=== PATIENT | female | born 1985 | race Caucasian/White ===

== ENCOUNTER 2016-09-21 14:39 | Inpatient (IN) | payer OTHER ==
[~2016-09-21] VITALS: Ht 167.6 cm; Wt 76.1 kg
--- NOTE | 2016-09-21 15:27 | DIAGNOSTIC IMAGING REPORT ---
PROCEDURE: XR ABD SERIES 2V ABD/1V CHEST INDICATION: ABDOMINAL PAIN TECHNIQUE: AP supine and upright views of the abdomen with single view of the chest. COMPARISON: Abdominal series 10/26/2010. FINDINGS: CHEST: Lungs are clear. Normal cardiovascular structures. Bony thorax is unremarkable. ABDOMEN: Left upper quadrant surgical changes. Bowel gas pattern is normal. No soft-tissue masses or unusual calcifications. No evidence of free air. IUD in place. Osseous structures are unremarkable. IMPRESSION: 1. Negative acute abdominal series. 2. Left upper quadrant surgical changes.
--- NOTE | 2016-09-21 17:07 | DIAGNOSTIC IMAGING REPORT ---
PROCEDURE: ABDOMEN/PELVIS WITH CONTRAST CLINICAL INDICATION: ABDOMINAL PAIN TECHNIQUE: 125 ml of Isovue 300 were injected intravenously and axial images were obtained of the abdomen and pelvis with sagittal and coronal reformations. COMPARISON: Plain films performed the same day and CT abdomen pelvis 10/12/2010 FINDINGS: ABDOMEN: Mild enlargement of the proximal pancreas. Moderate peripancreatic inflammation around the entire gland and small amount of fluid layering dependently along the left pararenal space, and towards the right and the paraduodenal region. Fluid extends caudally along the right medial pericolic gutter. The gland enhances diffusely. No intraparenchymal air foci. No significant ductal dilatation although multiple small ductal branches are visible. The splenic vein is visible without thrombosis. Since the prior CT scan, there has been a cholecystectomy and there is now mild intrahepatic and moderate extrahepatic biliary dilatation. No choledocholithiasis. Mild diffuse hepatic hypodensity. There are surgical changes of gastric bypass in the left upper quadrant. The excluded stomach demonstrates diffuse mild mural edema in the body and antrum, reactive. Decompressed small bowel loops. Mild colonic ileus. Clear lung bases. Normal sized heart. No hiatal hernia. The adrenal glands, kidneys, and spleen are normal. There are a few mildly prominent lymph nodes in the retroperitoneum, none pathologically enlarged. Retroperitoneal vessels and ureters are of normal caliber. PELVIS: Intrauterine device in position. Normal ovarian tissue. Scattered air-fluid levels in nondilated small bowel suggestive of reactive ileus. No free pelvic fluid or abscess. Normal urinary bladder, appendix, and pelvic vessels. IMPRESSION: 1. Findings of acute pancreatitis. Mild reactive gastritis and ileus, no other complication. 2. Moderate biliary dilatation, probably in part due to spasm in the pancreatic head and secondary to cholecystectomy. 3. Mild diffuse hepatic parenchymal hypodensity, likely mild hepatic edema, less likely hepatic steatosis. This raises possibility of alcohol induced hepatitis and pancreatitis. 4. Surgical changes of gastric bypass. 5. IUD in place in the uterus. 6. Findings called to the emergency room. All CT scans at this facility use dose modulation, iterative reconstruction, and/or weight-based dosing when appropriate to reduce radiation dose to as low as reasonably achievable.
--- NOTE | 2016-09-21 17:08 | ED ORDER SUMMARY ---
..... Patient: TOSIN MORALES OrderSheet [facility] VisitID: [id number] [address] [place] [address] 30y, F Registration Date/Time: 09/21/2016 ORDER SHEET Weight: 61.2 kg (stated) Allergies: None GENERAL ORDERS: Crystal Slicer (Continuous) (14:54 09/21/2016 EKoroleva P.A.-C) (15:05 KKnebel R.N.) Abd Series 2V Abd/1V Chest Urgent (14:55 09/21/2016 EKoroleva P.A.-C) (Ack 14:58 LTapper) (15:08 KKnebel R.N.) CBC w Diff Urgent (14:55 09/21/2016 EKoroleva P.A.-C) (Ack 14:58 LTapper) (15:01 KKnebel R.N.) CMP Urgent (14:55 09/21/2016 EKoroleva P.A.-C) (Ack 14:58 LTapper) (15:01 KKnebel R.N.) Amylase Urgent (14:55 09/21/2016 EKoroleva P.A.-C) (Ack 14:58 LTapper) (15:01 KKnebel R.N.) Lipase Urgent (14:55 09/21/2016 EKoroleva P.A.-C) (Ack 14:58 LTapper) (15:01 KKnebel R.N.) UA-Culture if indicated Urgent (14:55 09/21/2016 EKoroleva P.A.-C) (Ack 14:58 LTapper) (15:08 KKnebel R.N.) Urine Urgent (14:55 09/21/2016 EKoroleva P.A.-C) (Ack 14:58 LTapper) (15:08 KKnebel R.N.) Troponin-I Urgent (14:55 09/21/2016 EKoroleva P.A.-C) (Ack 14:58 LTapper) (15:02 KKnebel R.N.) EKG - ER Stat (14:55 09/21/2016 EKoroleva P.A.-C) (Ack 14:58 LTapper) (15:05 KKnebel R.N.) NPO (14:55 09/21/2016 EKoroleva P.A.-C) (15:02 KKnebel R.N.) CT Abd/Pel w Cont (No) (see lab) Urgent (16:09 09/21/2016 EKoroleva P.A.-C) (Ack 16:11 RKaruga) (16:52 KKnebel R.N.) Ethyl Alcohol Urgent (16:09 09/21/2016 EKoroleva P.A.-C) (Ack 16:11 RKaruga) (16:31 KKnebel R.N.) Urine Drug Screen Urgent (16:10 09/21/2016 EKoroleva P.A.-C) (Ack 16:12 RKaruga) (16:31 KKnebel R.N.) MEDICATION ORDERS: IV FLUIDS: IV NS : initial bolus 1000 mL (1000 mL/hr), then 1000 mL/hr for X1 (NOW); Shawn (14:54 09/21/2016 EKoroleva P.A.-C) (15:01 KKnebel R.N.) Zofran IV 4 mg (NOW) (14:55 09/21/2016 EKoroleva P.A.-C) (15:01 KKnebel R.N.) Dilaudid IV 1 mg (HIGH ALERT MEDICATION, NOW) (15:04 09/21/2016 EKoroleva P.A.-C) (15:27 KKnebel R.N.) Dilaudid IV 1 mg (may repeat 1 mg in 20 mins, total order of this is for 2 mg total) (16:10 09/21/2016 EKoroleva P.A.-C) (16:16 KKnebel R.N.) ORDER SHEET NOTES: [Electronically signed by Charlee FergusonASherri-C (17:58 09/21/2016)] [Electronically signed by Yvonne Velez R.N. (21:36 09/21/2016)] [Electronically locked/signed by Yvonne Velez R.N. (21:36 09/21/2016)Frederic
--- NOTE | 2016-09-21 17:08 | ED NURSING NOTES ---
Clinical Report - Nurses [facility] [address] [place] [address] 09/21/2016 14:41 Patient: TOSIN MORALES TRIAGE Triage time 14:49 Sep 21 2016. Acuity: LEVEL 3. Chief Complaint: ABDOMINAL PAIN and VOMITING. Alert. --14:55 Yvonne Velez R.N. 14:48 09/21/16. BP: 149/103. HR: 79. RR: 20. O2 saturation: 100%. Temp: 98.1 F. Pain level now: 04/17. --14:55 Yvonne Velez R.N. Weight: 61.2 kg stated. Height/Length: 67 inches Per Patient. BMI: 21.2. --14:55 Yvonne Velez R.N. Medications None. --14:49 Yvonne Velez R.N. Allergies None. --14:49 Yvonne Velez R.N. History Arrived by private vehicle, and accompanied by friend and (boyfriend). This started today. She has had vomiting and abdominal pain. Last oral intake by patient was liquid today. SOCIAL HX: Current every day light tobacco smoker (cigarette)- less than 1/2 a pack per day. Regular alcohol use; consumes two liquor drinks. Last drink was less than 24 hours ago. No recent travel. No infectious disease exposure. No known contact with a sick individual. SELF HARM ASSESSMENT: A self harm assessment was performed. The patient answered "no" to the question "Do you have thoughts of harming or killing yourself?". FALL RISK ASSESSMENT: Fall risk assessment completed. No fall risk identified. NUTRITIONAL RISK ASSESSMENT: The nutritional risk assessment revealed no deficiencies. FUNCTIONAL ASSESSMENT: Functional assessment: no impairments noted. LEARNING NEEDS ASSESSMENT: The learning needs assessment revealed no barriers. ABUSE ASSESSMENT: Abuse assessment: The patient was asked "Do you feel safe in your home?". SKIN INTEGRITY ASSESSMENT: Skin integrity risk assessment completed. No skin integrity risk identified. --14:55 Yvonne Velez R.N. PROBLEMS: Abscess. Staph Infections. Neck Pain. Immunizations. LNMP - Last Normal Menstrual Period. --14:49 Yvonne Velez R.N. Pancreatitis. --14:53 Yvonne Velez R.N. ADDITIONAL SURGERIES: Gallbladder Surgery. Gastric bypass. --14:50 Yvonne Velez R.N. Interventions ID band on patient. To room. --14:55 Yvonne Velez R.N. PHYSICAL ASSESSMENT GENERAL / NEURO / PSYCH: Alert. Oriented X 4. Appears in pain. RESPIRATORY: Respirations not labored. CVS: Capillary refill less than 2 seconds. GI / : Abdomen soft. Abdominal tenderness. SKIN: Skin is warm and dry. Skin rash (neck and upper back area). --14:56 Yvonne Velez R.N. NURSING PROGRESS NOTES Pulse oximeter and NIBP monitor placed on patient; monitor alarms on. Patient gowned. Head of bed elevated. Two patient identifiers checked. Call light placed in reach. Side rails up x 1. Bed placed in lowest position. Brakes of bed on. --14:57 Yvonne Velez R.N. 14:55 09/21/2016 Site #1 started via IV in the left antecubital space with an 20g angiocath; one attempt. Blood drawn: rainbow set. Labeled in the presence of the patient and sent to the lab. Saline lock flushed with 10 mL saline. --15:00 Yvonne Velez R.N. 14:59 09/21/2016 Started bag #1 1000 mL IV Fluids IV NS (Saline); bolus of 1000 mL over 1 hour(s) via site #1. Allergies verified and confirmed 5 rights. IV patency established. IV site checked: no pain, redness, or swelling. IV flushed thoroughly pre- and post-medication administration. --15:01 Yvonne Velez R.N. 15:01 09/21/2016 Zofran (Ondansetron HCl) IVP 4 mg given over 2 minute(s) via site #1. Allergies verified and confirmed 5 rights. IV patency established. IV site checked: no pain, redness, or swelling. IV flushed thoroughly pre- and post-medication administration. --15:01 Yvonne Velez R.N. monitor and storage bin tender placed on patient; monitor and storage bin tender- Lead II; monitor alarms on. --15:05 Yvonne Velez R.N. Patient transported to radiology by stretcher with tech. (15:09 Sep 21 2016). --15:09 Yvonne Velez R.N. EKG time: (15:04). EKG was performed by a tech and shown to the ED physician. --15:23 Sharita Coyle 15:25 09/21/16. Patient ID band checked for patient name: patient confirmed. Instructions provided to collect clean catch urine and patient verbalized understanding. Clean catch urine collected with return of yellow-colored clear urine; sample sent to lab for urinalysis and HCG. Specimen labeled in the presence of the patient. --15:30 Yvonne Velez R.N. 15:27 09/21/2016 Dilaudid (HYDROmorphone HCl PF) IVP 1 mg given over 2 hour(s) via site #1. Allergies verified, confirmed 5 rights and sedative warning given to the patient. IV patency established. IV site checked: no pain, redness, or swelling. IV flushed thoroughly pre- and post-medication administration. --15:27 Yvonne Velez R.N. 15:31 09/21/16. BP: 145/92. HR: 68. RR: 21. O2 saturation: 100%. Pain level now: 8/10. --15:31 Yvonne Velez R.N. 15:51 09/21/2016 Dilaudid IVP Response: pain is improving. Symptoms are the same. The patient feels the same. --16:16 Yvonne Velez R.N. 16:16 09/21/2016 Dilaudid (HYDROmorphone HCl PF) IVP 1 mg given over 2 minute(s) via site #1. Allergies verified, confirmed 5 rights and sedative warning given to the patient. IV patency established. IV site checked: no pain, redness, or swelling. IV flushed thoroughly pre- and post-medication administration. --16:16 Yvonne Velez R.N. 16:16 09/21/2016 IV Fluids IV NS Discontinued: bag #1 completed. Total amount infused: 1000 mL. --16:16 Yvonne Velez R.N. 16:17 09/21/16. BP: 137/87. HR: 81. RR: 17. O2 saturation: 98%. Pain level now: 03/18. --16:17 Yvonne Velez R.N. Patient transported to [place] with tech. (16:41 Sep 21 2016 16:41 Sep 21 2016). --16:41 Yvonne Velez R.N. 16:51 09/21/16. BP: 144/100. HR: 85. RR: 12. O2 saturation: 100%. Pain level now: 02/15. --16:51 Yvonne Velez R.N. 16:52 09/21/2016 Dilaudid (HYDROmorphone HCl PF) IVP 1 mg given over 2 minute(s) via site #1. Allergies verified, confirmed 5 rights and sedative warning given to the patient. IV patency established. IV site checked: no pain, redness, or swelling. IV flushed thoroughly pre- and post-medication administration. --16:52 Yvonne Velez R.N. Cardiac rhythm. Care transferred and report given (Cindy). --19:26 Yvonne Velez R.N. DISPOSITION / DISCHARGE Report was given to a nurse via a phone call. Report included patient's care, treatment, medications, reviewed medication reconcilliation, and condition (including any recent changes or anticipated changes). All questions were answered. Report was acknowledged and care was transferred. Bed obtained and ready (301). Patient's personal items include: shirt, pants, undergarments, socks, shoes, contacts, jewelry, wallet and cell phone, watch sliver colored, 4 earrings each side three silver colored and 1 black colored, 1 credit card; items were placed in belongings bag and given to the patient. --19:30 Yvonne Velez R.N. 19:32 09/21/16. BP: 147/102. HR: 84. RR: 21. O2 saturation: 100%. Pain level now: 04/17. --19:32 Yvonne Velez R.N. Locked/Released at 09/21/2016 21:36 by Yvonne Velez R.N.
--- NOTE | 2016-09-21 17:08 | ED CLINICAL REPORT ---
Clinical Report - Physicians/Mid Levels [facility] [address] [place] [address] 09/21/2016 14:41 [id number] Time Seen: 14:56 Mar 16 2016. Arrived- By private vehicle. Historian- patient and significant other. HISTORY OF PRESENT ILLNESS Chief Complaint: ABDOMINAL PAIN. This started today and is still present. It is described as "pain" and it is described as located in the epigastric area and in the upper abdomen. The patient has had nausea, loss of appetite and vomiting. No diarrhea. (patient reports since today she has had epigastric pain, non-radiating with associated nausea. Unable to tolerate any po fluid/ food. Patient denies sick contacts. No meds. No recent travel. No melana/ no diarrhea). REVIEW OF SYSTEMS No constipation, black stools, difficulty with urination, pain with urination or urinary frequency. No fever, headache, chest pain or chills. All systems otherwise negative, except as recorded above. PAST HISTORY Problems: Pancreatitis. Abscess. Staph Infections. Neck Pain. Immunizations. LNMP - Last Normal Menstrual Period. Additional Surgeries: . Gallbladder Surgery. Gastric bypass. Medications: None. Allergies: None. SOCIAL HISTORY Smoker- current status unknown. Alcohol use. No drug use. ADDITIONAL NOTES The nursing notes have been reviewed. PHYSICAL EXAM Vital Signs: 09/21/2016 14:48 BP: 149/103. HR: 79. RR: 20. O2 saturation: 100%. Temp: 98.1 F. Pain level now: 10. Appearance: Alert. Eyes: Eyes normal inspection. ENT: Ears normal. Neck: Normal inspection. CVS: Normal heart rate and rhythm. Heart sounds normal. Respiratory: No respiratory distress. Breath sounds normal. Back: Normal inspection. No CVA tenderness. Neuro: Oriented X 3. LABS, X-RAYS, AND EKG EKG: EKG time: (1504). No acute process. No acute ischemia. Normal EKG. Rate: 62. Normal P waves. Normal NOA. Normal QRS complex. Normal axis. Normal ST and T waves and QT. Prior EKG unavailable. The study has been interpreted contemporaneously. The EKG appears to be a good tracing. Chest X-ray: (IMPRESSION: 1. Negative acute abdominal series. 2. Left upper quadrant surgical changes. Electronically Final signed by:Randall Kelly MD 09/21/2016 3:27:27 PM). Abdominal CT: IMPRESSION: 1. Findings of acute pancreatitis. Mild reactive gastritis and ileus, no other complication. 2. Moderate biliary dilatation, probably in part due to spasm in the pancreatic head and secondary to cholecystectomy. 3. Mild diffuse hepatic parenchymal hypodensity, likely mild hepatic edema, less likely hepatic steatosis. This raises possibility of alcohol induced hepatitis and pancreatitis. 4. Surgical changes of gastric bypass. 5. IUD in place in the uterus. 6. Findings called to the emergency room. All CT scans at this facility use dose modulation, iterative reconstruction, and/or weight-based dosing when appropriate to reduce radiation dose to as low as reasonably achievable. Electronically Final signed by:Marilynn Perez MD 09/21/2016 5:03:00 PM. Laboratory Tests: UA-Culture if indicated: (LAURIE: 09/21/2016 15:25) ( MsgRcvd 09/21/2016 16:12) Final results Test Result Flag Units (Reference) URINE COLOR YELLOW URINE APPEARANCE CLEAR URINE GLUCOSE NEGATIVE (NEGATIVE) URINE BILIRUBIN NEGATIVE (NEGATIVE) URINE KETONE 1+ (NEGATIVE) URINE SPECIFIC GRAVITY 1.020 (1.010-1.030) URINE PH 7.5 (5.0-8.0) URINE PROTEIN 1+ (NEGATIVE) URINE UROBILINOGEN 1.0 EU/dL (0.2-1.0) URINE NITRITE NEGATIVE (NEGATIVE) URINE BLOOD TRACE-INTACT (NEGATIVE) URINE LEUK ESTERASE NEGATIVE (NEGATIVE) URINE RBC 1-3 rbc/hpf (0-1) URINE WBC 1-3 wbc/hpf (0-1) URINE EPITHELIAL CELLS 3-5 EPI/hpf (0-5) URINE BACTERIA MODERATE (2+ TO 3+) (NONE SEEN) URINE COMMENT CULTURE INDICATED URINE CULTURES ARE SET-UP BASED ON THE FOLLOWING CRITERIA:POSITIVE NITRITEPOSITIVE LEUKOCYTE ESTERASEGREATER THAN 10 WHITE BLOOD CELLSMODERATE (2+) OR GREATER BACTERIA Urine: (LAURIE: 09/21/2016 15:25) ( [facility] 09/21/2016 15:51) Final results Test Result Flag Units (Reference) URINE NEGATIVE CBC w Diff: (LAURIE: 09/21/2016 14:50) ( [facility] 09/21/2016 15:07) Final results Test Result Flag Units (Reference) WHITE BLOOD COUNT 12.9 H K/uL (4.5-11.5) RED BLOOD COUNT 4.15 M/uL (4.00-5.20) HEMOGLOBIN 12.5 gm/dL (12.0-16.0) HEMATOCRIT 38.0 % (36.0-46.0) MEAN CELL VOLUME 92 fL (80-100) MEAN CORPUSCULAR HGB 30 pg (26-34) MEAN CORPUSCULAR HGB CONC 33 g/dL (31-37) RED CELL DISTRIBUTION WIDTH 20.4 H % (11.6-14.8) PLATELET COUNT 374 K/uL (150-400) NEUTROPHIL % 84.5 H % (50-75) LYMPH % 11.6 L % (25-40) MONO % 3.5 % (3-14) EOSINOPHIL % 0.4 % (0-4) BASOPHIL % 0 % (0-2) Urine Drug Screen: (LAURIE: 09/21/2016 15:25) ( [facility] 09/21/2016 16:43) Final results Test Result Flag Units (Reference) AMPHETAMINE/METHAMPHETAMINE NEGATIVE (NEGATIVE) BARBITURATE NEGATIVE (NEGATIVE) BENZODIAZEPINE NEGATIVE (NEGATIVE) CANNABINOID NEGATIVE (NEGATIVE) COCAINE NEGATIVE (NEGATIVE) ECSTASY NEGATIVE (NEGATIVE) METHADONE NEGATIVE (NEGATIVE) OPIATE NEGATIVE (NEGATIVE) The urine drug screen is a qualitative screening test fordrug overdose and abuse. All screen results should beconsidered as presumptive.Drugs screened for are as follows:BenzodiazepinesCocaineAmphetamines/MetamphetaminesTHC (Tetrahydrocannabinol)OpiatesBarbituratesEcstasyMethadonePositive results are unconfirmed. For confirmation, notifythe lab for the specimen to be sent to the reference lab.All confirmations must be performed by a differentmethodology.The ingestion of natural herbal and plant productscontaining Ephedra/Ephedra metabolites can produce in urineone or more substances capable of cross reacting withamphetamine/methamphetamine immunoassays. These testsprovide a preliminary result only. A more specificalternative chemical method must be used to obtain aconfirmed analytical result. Ethyl Alcohol: (LAURIE: 09/21/2016 14:51) ( MsgRcvd 09/21/2016 16:32) Final results Test Result Flag Units (Reference) ETHYL ALCOHOL 4 mg/dL (3-10) CMP: (LAURIE: 09/21/2016 14:50) ( MsgRcvd 09/21/2016 16:05) Final results Test Result Flag Units (Reference) GLUCOSE 97 mg/dL (70-110) BUN 6 L mg/dL (7-18) CREATININE 0.6 mg/dL (0.6-1.3) Estimated GFR >60 mL/min Estimated GFR- >60 mL/min Note: Persistent reduction over 3 months in eGFR<60 mL/min/1.73 m2 defines CKD. Patients with eGFR values>=60 mL/min/1.73 m2 may also have CKD if evidence ofpersistent proteinuria. Additional information may be foundat www.kidney.org. SODIUM 140 mmol/L (136-145) POTASSIUM 4.2 mmol/L (3.5-5.1) CHLORIDE 101 mmol/L (98-107) CARBON DIOXIDE 28 mmol/L (21-32) CALCIUM 8.5 mg/dL (8.5-10.1) TOTAL PROTEIN 7.2 g/dL (6.4-8.2) ALBUMIN 3.7 g/dL (3.3-5.0) BILIRUBIN, TOTAL 0.4 mg/dL (0.0-1.0) ALKALINE PHOSPHATASE 119 H U/L (46-116) AST (SGOT) 81 H U/L (15-37) ALT (SGPT) 47 U/L (12-78) AMYLASE 382 H U/L (25-115) TROPONIN I <0.05 ng/mL (0.00-1.5) TROPONIN REFERENCE RANGE:<0.1 NEGATIVE0.1-1.5 INDETERMINANT>1.5 POSITIVE LIPASE 3010 H U/L (73-393) . PROGRESS AND PROCEDURES Course of Care: Pt remains in pain, will repeat dilauidid 1 mg, she has now recieved 3 mg in total, in addition recievein 2nd L of IV NS. Lipase significantly elevated, pt does endorse 2 ETOH drinks per day, and h/o pancreatitis, with admissin, prior to her cholecysectomy. Pt with no new meds/ abx. Pt stable. Discussed case with DR. Ness 1700 Radiology, reports acute pancreatitis Discussed case with DR. Sewell 1708 who will see patient in er. Symptoms better. Patient/family counseled. Disposition: Admitted to Acute Care. CLINICAL IMPRESSION Pancreatitis likely secondary to chronic ETOH dependence and use. (Electronically signed by Charlee Ferguson P.A.-C 09/21/2016 17:58)
--- NOTE | 2016-09-21 17:08 | ED ORDER SUMMARY ---
..... Patient: TOSIN MORALES OrderSheet [facility] VisitID: [id number] [address] [place] [address] 30y, F Registration Date/Time: 09/21/2016 ORDER SHEET Weight: 61.2 kg (stated) Allergies: None GENERAL ORDERS: Industrial Service Technician (Continuous) (14:54 09/21/2016 EKoroleva P.A.-C) (15:05 KKnebel R.N.) Abd Series 2V Abd/1V Chest Urgent (14:55 09/21/2016 EKoroleva P.A.-C) (Ack 14:58 LTapper) (15:08 KKnebel R.N.) CBC w Diff Urgent (14:55 09/21/2016 EKoroleva P.A.-C) (Ack 14:58 LTapper) (15:01 KKnebel R.N.) CMP Urgent (14:55 09/21/2016 EKoroleva P.A.-C) (Ack 14:58 LTapper) (15:01 KKnebel R.N.) Amylase Urgent (14:55 09/21/2016 EKoroleva P.A.-C) (Ack 14:58 LTapper) (15:01 KKnebel R.N.) Lipase Urgent (14:55 09/21/2016 EKoroleva P.A.-C) (Ack 14:58 LTapper) (15:01 KKnebel R.N.) UA-Culture if indicated Urgent (14:55 09/21/2016 EKoroleva P.A.-C) (Ack 14:58 LTapper) (15:08 KKnebel R.N.) Urine Urgent (14:55 09/21/2016 EKoroleva P.A.-C) (Ack 14:58 LTapper) (15:08 KKnebel R.N.) Troponin-I Urgent (14:55 09/21/2016 EKoroleva P.A.-C) (Ack 14:58 LTapper) (15:02 KKnebel R.N.) EKG - ER Stat (14:55 09/21/2016 EKoroleva P.A.-C) (Ack 14:58 LTapper) (15:05 KKnebel R.N.) NPO (14:55 09/21/2016 EKoroleva P.A.-C) (15:02 KKnebel R.N.) CT Abd/Pel w Cont (No) (see lab) Urgent (16:09 09/21/2016 EKoroleva P.A.-C) (Ack 16:11 RKaruga) (16:52 KKnebel R.N.) Ethyl Alcohol Urgent (16:09 09/21/2016 EKoroleva P.A.-C) (Ack 16:11 RKaruga) (16:31 KKnebel R.N.) Urine Drug Screen Urgent (16:10 09/21/2016 EKoroleva P.A.-C) (Ack 16:12 RKaruga) (16:31 KKnebel R.N.) MEDICATION ORDERS: IV FLUIDS: IV NS : initial bolus 1000 mL (1000 mL/hr), then 1000 mL/hr for X1 (NOW); Shawn (14:54 09/21/2016 EKoroleva P.A.-C) (15:01 KKnebel R.N.) Zofran IV 4 mg (NOW) (14:55 09/21/2016 EKoroleva P.A.-C) (15:01 KKnebel R.N.) Dilaudid IV 1 mg (HIGH ALERT MEDICATION, NOW) (15:04 09/21/2016 EKoroleva P.A.-C) (15:27 KKnebel R.N.) Dilaudid IV 1 mg (may repeat 1 mg in 20 mins, total order of this is for 2 mg total) (16:10 09/21/2016 EKoroleva P.A.-C) (16:16 KKnebel R.N.) ORDER SHEET NOTES: [Electronically signed by Charlee FergusonASherri-C (17:58 09/21/2016)] [Electronically signed by Yvonne Velez R.N. (21:36 09/21/2016)] [Electronically locked/signed by Yvonne Velez R.N. (21:36 09/21/2016)Frederic
--- NOTE | 2016-09-21 18:14 | History & Physical Report ---
History Chief Complaint abdominal pain History of Present Illness Patient is a 30 year old female with a pmh of gallstone pancreatitis, and gastric bypass via kelsey en y. Patient has been having abdominal pain for one day. Patient claims that it was a sudden onset of abdominal pain that was epigastric in location and felt like gnawing pain that was going from her epigastrium to her back. Patient had 4 episodes of vomiting with no releif from the pain. Patient continued to have the abdominal pain and decided that the best option would be to come to the hospital. Patient is otherwise stable. Patient History 1. Pancreatitis 2. Gastric bypass status for obesity Social History Patient lives at home with her fiance. She has one child and is currently not employed. Patient does smoke cigarettes but does not use alcohol or illicit drugs. Patient smokes around half a pack a day for the past 18 years. Medications and Allergies Medications Current Medications Sig/Mj Start time Last Medication Dose Route Stop Time Status Admin Multivit/ 1 TAB DAILY 09/22 09 AC 09/22 Folic Acid/Iron PO 0851 Thiamine HCl 100 MG DAILY 09/22 0900 AC 09/22 PO 0850 Pantoprazole Sodium 40 MG DAILY@0600 09/22 0600 AC 09/22 IV 0603 Ondansetron HCl See Dose Q4H PRN 09/22 0400 AC Insts (1) IV Promethazine HCl 6.25 MG Q6H PRN 09/22 0400 AC 09/22 IV 0435 Hydromorphone HCl 1 MG Q1H PRN 09/21 2330 AC 09/22 IV 1702 Nicotine 14 MG QAM 09/21 2248 09/22 TOP 0851 Diazepam 5 MG PRN PRN 09/21 2030 AC IV Ketorolac 30 MG Q6H PRN 09/21 2030 AC 09/22 Tromethamine IV 09/23 0231 0336 Acetaminophen 650 MG Q6H PRN 09/21 1815 AC PO Sodium Chloride 1,000 ML ASDIRECTED 09/21 181 AC 09/22 IV 1530 Dose Instructions: (1)Ondansetron HCl: 4 - 8 MG Allergies Coded Allergies: Codeine (Severe, "MAKES ME FEEL WEIRD, LIKE MY THROAT IS CLOSING" 09/21/16) Review of Systems Constitutional Denies: Fever, Chills, Sweats, Weakness, Malaise, Other. ENT Denies: Ear Pain, Ear Discharge, Nose Pain, Nasal Discharge, Nasal Congestion, Mouth Pain, Mouth Swelling, Throat Pain, Throat Swelling, Other. Respiratory Denies: Cough, Dry, SOB w/exertion, Wheezing, Hemoptysis, Pleuritic Pain, Sputum , Other. Cardiovascular Denies: Chest Pain, Palpitations, Orthopnea, PND, Edema, Light-headedness, Other. Gastrointestinal Abdominal Pain. Denies: Nausea, Vomiting, Diarrhea, Constipation, Melena, Hematochezia, Other. Genitourinary Denies: Dysuria, Frequency, Incontinence, Hematuria, Retention, Other. Musculoskeletal Denies: Neck Pain, Shoulder Pain, Arm Pain, Back Pain, Hand Pain, Leg Pain, Foot Pain, Other. Skin Denies: Rash, Lesions, Jaundice, Bruising, Other. Neurological Denies: Weakness, Numbness, Incoordination, Change in speech, Confusion, Seizures, Other. Physical Exam Vital Signs / I&Os Vital Signs Date Time Temp Pulse Resp B/P Pulse O2 O2 Flow FiO2 Ox Delivery Rate 09/22 1423 97.5 87 16 118/76 94 Room Air 09/22 1018 98.4 76 16 114/72 96 Room Air 09/22 0820 Room Air 09/22 0639 97.3 78 14 118/79 98 Room Air 09/22 0230 98.2 87 16 115/81 99 Room Air 09/21 2206 98.1 95 17 129/73 99 Room Air 09/21 1945 98.6 84 16 133/80 98 I&O 09/21 0800 09/21 1600 09/22 0000 Intake Total 48 Output Total 600 Balance -552 General Appearance Alert, Oriented X3, No acute distress HEENT Atraumatic, EOMI, Moist mucous membranes Lungs Clear to auscultation, Normal air movement Cardiovascular Regular rate and rhythm, Normal S1 and S2, No murmurs, gallops, rubs Abdomen Soft, No guarding, No rebound, No masses, No hepatosplenomegaly, - tenderness to epigastrium Extremities No edema, Normal pulses, No tenderness, Strength = upper ext's, Strength = lower ext's Skin No Breakdown, No Significant Lesions Neurological Normal speech, Normal tone, Cranial nerves intact, Strength 5/5 x4 ext's, No lateralizing signs Psych/Mental Status Mood normal LAB Results Laboratory Tests 09/22 0515 Chemistry Plasma Sodium (136 - 145 mmol/L) 139 Plasma Potassium (3.5 - 5.1 mmol/L) 3.9 Plasma Chloride (98 - 107 mmol/L) 105 CO2 (Enzymatic) (21 - 32 mmol/L) 24 BUN (7 - 18 mg/dL) 5 Creatinine (0.6 - 1.3 mg/dL) 0.6 Est GFR ( Amer) (mL/min) >60 Est GFR (Non-Af Amer) (mL/min) >60 Glucose (70 - 110 mg/dL) 90 Plasma Calcium (8.5 - 10.1 mg/dL) 7.2 Plasma Magnesium (1.8 - 2.4 mg/dL) 2.0 Total Bilirubin (0.0 - 1.0 mg/dL) 1.2 AST (15 - 37 U/L) 439 ALT (12 - 78 U/L) 100 Alkaline Phosphatase (46 - 116 U/L) 248 Total Protein (6.4 - 8.2 g/dL) 5.5 Albumin (3.3 - 5.0 g/dL) 2.8 Triglycerides (30 - 200 mg/dL) 63 Cholesterol (140 - 200 mg/dL) 108 LDL Cholesterol, Calc (mg/dL) 29 HDL Cholesterol (32 - 96 mg/dL) 67 LDL/HDL Ratio 0.4 Cholesterol/HDL Ratio 1.6 Coronary Risk Interp (0.4 - 1.0) 0.4 Lipase (73 - 393 U/L) 5672 Hematology WBC (4.5 - 11.5 K/uL) 13.3 RBC (4.00 - 5.20 M/uL) 3.68 Hgb (12.0 - 16.0 gm/dL) 11.0 Hct (36.0 - 46.0 %) 34.3 MCV (80 - 100 fL) 93 MCH (26 - 34 pg) 30 RDW (11.6 - 14.8 %) 20.2 Neut % (Auto) (50 - 75 %) 92.7 Lymph % (Auto) (25 - 40 %) 2.8 [place] % (Auto) (3 - 14 %) 4.2 Eos % (Auto) (0 - 4 %) 0.1 Baso % (Auto) (0 - 2 %) 0.2 Plt Count, EDTA (150 - 400 K/uL) 275 RBC Morphology 1+ ANISOCYTOSIS PUBS MCHC (31 - 37 g/dL) 32 Microbiology Date/Time Procedure - Status Source Growth 09/21 2129 MRSA Screen - RECD NOSE Assessment and Plan Problem List 1. Pancreatitis Plan - patient has radiological evidence of pancreatitis with elevated lipase - most likely secondary to alcohol use - no evidence of cyst formation - will hydrate with iv fluids - will obtain daily cbcs. cmps. and lipase 2. Gastric bypass status for obesity Plan - no plan of action currently due to npo status - will slowly introduce diet once patients pain subsides
[2016-09-21 19:45] VITALS: BP 133/80
--- NOTE | 2016-09-21 21:36 | ED DISCHARGE INSTRUCTIONS ---
Patient: TOSIN MORALES General Instructions [facility] VisitID: [id number] [address] [place] [address] 30y, F Registration Date/Time: 09/21/2016 Pancreatitis likely secondary to chronic ETOH dependence and use. (Electronically signed by Charlee Ferguson P.A.-C 09/21/2016 17:58)
--- NOTE | 2016-09-21 21:36 | ED MAR SUMMARY ---
..... Medication Administration Record [facility] [address] [place] [address] Patient: TOSIN MORALES Visit ID: [id number] 30y, F Weight: 61.2 kg Height/Length: 67 in BMI: 21.2 ALLERGIES: None Start 14:59 09/21/2016 Yvonne Velez R.N., Stop 16:16 09/21/2016 Yvonne Velez R.N. Medication Administered: IV NS (SALINE), Dose: IV Fluids, Bolus: 1000 mL over 1 hour(s), Dispensed: 1000 mL bag, Site: #1 left AC. Medication Ordered: IV NS : initial bolus 1000 mL (1000 mL/hr), then 1000 mL/hr for X1 (NOW); Shawn. Given 15:01 09/21/2016 Yvonne Velez R.N. Medication Administered: ZOFRAN [IVP] (ONDANSETRON HCL), Dose: 4 mg IVP over 2 minute(s), Site: #1 left AC. Medication Ordered: Zofran IV 4 mg (NOW). Given 15:27 09/21/2016 Yvonne Velez R.N. Medication Administered: DILAUDID [IVP] (HYDROMORPHONE HCL PF), Dose: 1 mg IVP over 2 hour(s), Site: #1 left AC. Medication Ordered: Dilaudid IV 1 mg (HIGH ALERT MEDICATION, NOW). Given 16:16 09/21/2016 Yvonne Velez R.N. Medication Administered: DILAUDID [IVP] (HYDROMORPHONE HCL PF), Dose: 1 mg IVP over 2 minute(s), Site: #1 left AC. Medication Ordered: Dilaudid IV 1 mg (may repeat 1 mg in 20 mins, total order of this is for 2 mg total). Given 16:52 09/21/2016 Yvonne Velez R.N. Medication Administered: DILAUDID [IVP] (HYDROMORPHONE HCL PF), Dose: 1 mg IVP over 2 minute(s), Site: #1 left AC. Medication Ordered: Dilaudid IV 1 mg (HIGH ALERT MEDICATION, NOW).
--- NOTE | 2016-09-21 21:36 | ED DISCHARGE INSTRUCTIONS ---
Patient: TOSIN MORALES General Instructions [facility] VisitID: [id number] [address] [place] [address] 30y, F Registration Date/Time: 09/21/2016 Pancreatitis likely secondary to chronic ETOH dependence and use. (Electronically signed by Charlee Ferguson P.A.-C 09/21/2016 17:58)
--- NOTE | 2016-09-21 21:36 | ED MED RECONCILIATION SUMMARY ---
Patient: TOSIN MORALES Medication Reconciliation Report [facility] VisitID: [id number] [address] [place] [address] 30y, F Registration Date/Time: 09/21/2016 Weight: 61.2 kg Height/Length: 67 in. BMI: 21.2 ALLERGIES: None The patient's Home Medications are listed below: NONE. The source(s) of the original Home Medication information: Not obtained. The following Medications were given to the patient in the Emergency Department: IV NS IV Fluids bolus 1000 mL over 1 hour(s), administered: 09/21/2016 2:59:00 PM Zofran [IVP] IVP 4 mg, administered: 09/21/2016 3:01:00 PM Dilaudid [IVP] IVP 1 mg, administered: 09/21/2016 3:27:46 PM Dilaudid [IVP] IVP 1 mg, administered: 09/21/2016 4:16:00 PM Dilaudid [IVP] IVP 1 mg, administered: 09/21/2016 4:52:00 PM The following Medications were prescribed to the patient: None.
--- NOTE | 2016-09-21 21:36 | ED MED RECONCILIATION SUMMARY ---
Patient: TOSIN MORALES Medication Reconciliation Report [facility] VisitID: [id number] [address] [place] [address] 30y, F Registration Date/Time: 09/21/2016 Weight: 61.2 kg Height/Length: 67 in. BMI: 21.2 ALLERGIES: None The patient's Home Medications are listed below: NONE. The source(s) of the original Home Medication information: Not obtained. The following Medications were given to the patient in the Emergency Department: IV NS IV Fluids bolus 1000 mL over 1 hour(s), administered: 09/21/2016 2:59:00 PM Zofran [IVP] IVP 4 mg, administered: 09/21/2016 3:01:00 PM Dilaudid [IVP] IVP 1 mg, administered: 09/21/2016 3:27:46 PM Dilaudid [IVP] IVP 1 mg, administered: 09/21/2016 4:16:00 PM Dilaudid [IVP] IVP 1 mg, administered: 09/21/2016 4:52:00 PM The following Medications were prescribed to the patient: None.
--- NOTE | 2016-09-21 21:36 | ED MAR SUMMARY ---
..... Medication Administration Record [facility] [address] [place] [address] Patient: TOSIN MORALES Visit ID: [id number] 30y, F Weight: 61.2 kg Height/Length: 67 in BMI: 21.2 ALLERGIES: None Start 14:59 09/21/2016 Yvonne Velez R.N., Stop 16:16 09/21/2016 Yvonne Velez R.N. Medication Administered: IV NS (SALINE), Dose: IV Fluids, Bolus: 1000 mL over 1 hour(s), Dispensed: 1000 mL bag, Site: #1 left AC. Medication Ordered: IV NS : initial bolus 1000 mL (1000 mL/hr), then 1000 mL/hr for X1 (NOW); Shawn. Given 15:01 09/21/2016 Yvonne Velez R.N. Medication Administered: ZOFRAN [IVP] (ONDANSETRON HCL), Dose: 4 mg IVP over 2 minute(s), Site: #1 left AC. Medication Ordered: Zofran IV 4 mg (NOW). Given 15:27 09/21/2016 Yvonne Velez R.N. Medication Administered: DILAUDID [IVP] (HYDROMORPHONE HCL PF), Dose: 1 mg IVP over 2 hour(s), Site: #1 left AC. Medication Ordered: Dilaudid IV 1 mg (HIGH ALERT MEDICATION, NOW). Given 16:16 09/21/2016 Yvonne Velez R.N. Medication Administered: DILAUDID [IVP] (HYDROMORPHONE HCL PF), Dose: 1 mg IVP over 2 minute(s), Site: #1 left AC. Medication Ordered: Dilaudid IV 1 mg (may repeat 1 mg in 20 mins, total order of this is for 2 mg total). Given 16:52 09/21/2016 Yvonne Velez R.N. Medication Administered: DILAUDID [IVP] (HYDROMORPHONE HCL PF), Dose: 1 mg IVP over 2 minute(s), Site: #1 left AC. Medication Ordered: Dilaudid IV 1 mg (HIGH ALERT MEDICATION, NOW).
[2016-09-21 22:06] VITALS: BP 129/73
[2016-09-22 02:30] VITALS: BP 115/81
[2016-09-22 06:39] VITALS: BP 118/79
[2016-09-22 10:18] VITALS: BP 114/72
[2016-09-22 14:23] VITALS: BP 118/76
--- NOTE | 2016-09-22 17:53 | Progress Note ---
Subjective General Patient seen and examined. Patient is still having persistent abdominal pain, additionally patients lipase was seen to increase. Constitutional Weakness, Malaise. Denies: Fever, Chills, Sweats, Other. Eyes Denies: Pain, Vision Change, Conjunctival Inflammation, Eyelid Inflammation, Redness, Other. Respiratory Denies: Cough, Dry, SOB w/exertion, Wheezing, Hemoptysis, Pleuritic Pain, Sputum , Other. Cardiovascular Denies: Chest Pain, Palpitations, Orthopnea, PND, Edema, Light-headedness, Other. Gastrointestinal Denies: Nausea, Vomiting, Abdominal Pain, Diarrhea, Constipation, Melena, Hematochezia, Other. Genitourinary Denies: Dysuria, Frequency, Incontinence, Hematuria, Retention, Other. Musculoskeletal Denies: Neck Pain, Shoulder Pain, Arm Pain, Back Pain, Hand Pain, Leg Pain, Foot Pain, Other. Skin Denies: Rash, Lesions, Jaundice, Bruising, Other. Neurological Denies: Weakness, Numbness, Incoordination, Change in speech, Confusion, Seizures, Other. Physical Exam Vital Signs / I&Os Vital Signs Date Time Temp Pulse Resp B/P Pulse O2 O2 Flow FiO2 Ox Delivery Rate 09/22 1423 97.5 87 16 118/76 94 Room Air 09/22 1018 98.4 76 16 114/72 96 Room Air 09/22 0820 Room Air 09/22 0639 97.3 78 14 118/79 98 Room Air 09/22 0230 98.2 87 16 115/81 99 Room Air 09/21 2206 98.1 95 17 129/73 99 Room Air 09/21 1945 98.6 84 16 133/80 98 I&O 09/21 0800 09/21 1600 09/22 0000 Intake Total 48 Output Total 600 Balance -552 General Appearance Alert, Oriented X3, No acute distress HEENT PERRLA, EOMI, Moist mucous membranes Lungs Clear to auscultation, Normal air movement Neck No JVD, No lymphadenopathy, 2+ carotid pulse wo bruit Cardiovascular Regular rate and rhythm, Normal S1 and S2, No murmurs, gallops, rubs Abdomen Soft, No rebound, - tenderness to palpation of the epigastrium Extremities No edema, Normal pulses, No tenderness, Strength = upper ext's, Strength = lower ext's Skin No Breakdown, No Significant Lesions Neurological Normal tone, Sensation intact, Cranial nerves intact, Strength 5/5 x4 ext's, No lateralizing signs Psych/Mental Status Mood normal LAB Results Laboratory Tests 09/22 0515 Chemistry Plasma Sodium (136 - 145 mmol/L) 139 Plasma Potassium (3.5 - 5.1 mmol/L) 3.9 Plasma Chloride (98 - 107 mmol/L) 105 CO2 (Enzymatic) (21 - 32 mmol/L) 24 BUN (7 - 18 mg/dL) 5 Creatinine (0.6 - 1.3 mg/dL) 0.6 Est GFR ( Amer) (mL/min) >60 Est GFR (Non-Af Amer) (mL/min) >60 Glucose (70 - 110 mg/dL) 90 Plasma Calcium (8.5 - 10.1 mg/dL) 7.2 Plasma Magnesium (1.8 - 2.4 mg/dL) 2.0 Total Bilirubin (0.0 - 1.0 mg/dL) 1.2 AST (15 - 37 U/L) 439 ALT (12 - 78 U/L) 100 Alkaline Phosphatase (46 - 116 U/L) 248 Total Protein (6.4 - 8.2 g/dL) 5.5 Albumin (3.3 - 5.0 g/dL) 2.8 Triglycerides (30 - 200 mg/dL) 63 Cholesterol (140 - 200 mg/dL) 108 LDL Cholesterol, Calc (mg/dL) 29 HDL Cholesterol (32 - 96 mg/dL) 67 LDL/HDL Ratio 0.4 Cholesterol/HDL Ratio 1.6 Coronary Risk Interp (0.4 - 1.0) 0.4 Lipase (73 - 393 U/L) 5672 Hematology WBC (4.5 - 11.5 K/uL) 13.3 RBC (4.00 - 5.20 M/uL) 3.68 Hgb (12.0 - 16.0 gm/dL) 11.0 Hct (36.0 - 46.0 %) 34.3 MCV (80 - 100 fL) 93 MCH (26 - 34 pg) 30 RDW (11.6 - 14.8 %) 20.2 Neut % (Auto) (50 - 75 %) 92.7 Lymph % (Auto) (25 - 40 %) 2.8 [place] % (Auto) (3 - 14 %) 4.2 Eos % (Auto) (0 - 4 %) 0.1 Baso % (Auto) (0 - 2 %) 0.2 Plt Count, EDTA (150 - 400 K/uL) 275 RBC Morphology 1+ ANISOCYTOSIS PUBS MCHC (31 - 37 g/dL) 32 Microbiology Date/Time Procedure - Status Source Growth 09/21 2129 MRSA Screen - RECD NOSE Assessment and Plan Problem List 1. Pancreatitis Plan - radiological evidence of pancreatitis with blood work showing elevated lipase - pts lipase has increased since yesterday - will continue to trend and look for improvement 2. Gastric bypass status for obesity Plan - stable - keeping patient npo for the time being
[2016-09-22 18:10] VITALS: BP 127/76
[2016-09-22 22:11] VITALS: BP 126/77
[2016-09-23 03:36] VITALS: BP 109/71
[2016-09-23 06:53] VITALS: BP 116/78
[2016-09-23 10:53] VITALS: BP 122/71
[2016-09-23 14:36] VITALS: BP 126/85
--- NOTE | 2016-09-23 16:30 | Progress Note ---
Subjective General Patient seen and examined, patient has complaints of increased abdominal fullness overnight. Patients abdominal exam shows improvement. Constitutional Denies: Fever, Chills, Sweats, Weakness, Malaise, Other. Eyes Denies: Pain, Vision Change, Conjunctival Inflammation, Eyelid Inflammation, Redness, Other. ENT Denies: Ear Pain, Ear Discharge, Nose Pain, Nasal Discharge, Nasal Congestion, Mouth Pain, Mouth Swelling, Throat Pain, Throat Swelling, Other. Respiratory Denies: Cough, Dry, SOB w/exertion, Wheezing, Hemoptysis, Pleuritic Pain, Sputum , Other. Cardiovascular Denies: Chest Pain, Palpitations, Orthopnea, PND, Edema, Light-headedness, Other. Gastrointestinal Nausea, Abdominal Pain. Denies: Vomiting, Diarrhea, Constipation, Melena, Hematochezia, Other. Genitourinary Denies: Dysuria, Frequency, Incontinence, Hematuria, Retention, Other. Musculoskeletal Denies: Neck Pain, Shoulder Pain, Arm Pain, Back Pain, Hand Pain, Leg Pain, Foot Pain, Other. Skin Denies: Rash, Lesions, Jaundice, Bruising, Other. Neurological Denies: Weakness, Numbness, Incoordination, Change in speech, Confusion, Seizures, Other. Physical Exam Vital Signs / I&Os Vital Signs Date Time Temp Pulse Resp B/P Pulse O2 O2 Flow FiO2 Ox Delivery Rate 09/23 1436 98.4 90 16 126/85 92 Nasal 2.0 Cannula 09/23 1053 98.8 86 16 122/71 90 Nasal 2.0 Cannula 09/23 0653 116/78 09/23 0650 98.4 95 16 94 Nasal 2.0 Cannula 09/23 0336 98.2 98 17 109/71 94 Nasal 2.0 Cannula 09/23 0100 Nasal 2.0 Cannula 09/22 2211 98.1 84 17 126/77 96 Nasal 2.0 Cannula 09/22 1938 Nasal 2.0 Cannula 09/22 1810 99.5 89 16 127/76 95 Room Air I&O 09/22 0800 09/22 1600 09/23 0000 Intake Total 3098 2727 Output Total 75 400 650 Balance 3023 -400 2077 General Appearance Alert, Oriented X3, No acute distress Lungs Clear to auscultation, Normal air movement Cardiovascular Regular rate and rhythm, Normal S1 and S2, No murmurs, gallops, rubs Abdomen Soft, - tenderness to epigastrium - no evidence of new mass, or increased abdominal swelling Extremities No clubbing, No edema, Normal pulses, Strength = upper ext's, Strength = lower ext's Skin No Rashes, No Significant Lesions Neurological Normal speech, Normal tone, Cranial nerves intact, Strength 5/5 x4 ext's, No lateralizing signs Psych/Mental Status Mood normal LAB Results Laboratory Tests 09/23 0515 Chemistry Plasma Sodium (136 - 145 mmol/L) 138 Plasma Potassium (3.5 - 5.1 mmol/L) 3.5 Plasma Chloride (98 - 107 mmol/L) 105 CO2 (Enzymatic) (21 - 32 mmol/L) 20 BUN (7 - 18 mg/dL) 2 Creatinine (0.6 - 1.3 mg/dL) 0.5 Est GFR ( Amer) (mL/min) >60 Est GFR (Non-Af Amer) (mL/min) >60 Glucose (70 - 110 mg/dL) 64 Plasma Calcium (8.5 - 10.1 mg/dL) 7.4 Total Bilirubin (0.0 - 1.0 mg/dL) 0.7 AST (15 - 37 U/L) 94 ALT (12 - 78 U/L) 52 Alkaline Phosphatase (46 - 116 U/L) 181 Total Protein (6.4 - 8.2 g/dL) 5.0 Albumin (3.3 - 5.0 g/dL) 2.2 Lipase (73 - 393 U/L) 1848 Hematology WBC (4.5 - 11.5 K/uL) 17.5 RBC (4.00 - 5.20 M/uL) 3.29 Hgb (12.0 - 16.0 gm/dL) 9.8 Hct (36.0 - 46.0 %) 30.6 MCV (80 - 100 fL) 93 MCH (26 - 34 pg) 30 RDW (11.6 - 14.8 %) 21.0 Neut % (Auto) (50 - 75 %) 92.6 Lymph % (Auto) (25 - 40 %) 3.3 [place] % (Auto) (3 - 14 %) 3.2 Eos % (Auto) (0 - 4 %) 0.6 Baso % (Auto) (0 - 2 %) 0.3 Plt Count, EDTA (150 - 400 K/uL) 265 RBC Morphology ANISOCYTOSIS +2 PUBS MCHC (31 - 37 g/dL) 32 Assessment and Plan Problem List 1. Pancreatitis Plan - pts pancreatitis is improving very gradually - pts lipase has decreased significantly - will continue with npo status and iv fluids - if patients white blood cell count does not improve, will opt for possible ct scan to rule out cyst formation - will continue to trend wbc and lipase
[2016-09-23 18:16] VITALS: BP 119/20
[2016-09-23 21:54] VITALS: BP 132/80
[2016-09-24 02:45] VITALS: BP 130/80
[2016-09-24 06:40] VITALS: BP 122/84
[2016-09-24 10:42] VITALS: BP 127/82
[2016-09-24 14:41] VITALS: BP 117/80
--- NOTE | 2016-09-24 18:24 | Progress Note ---
Subjective General Patient seen and examined. Patient has occasional nausea and some pain however it is much more improved than before. Patient is otherwise stable. Physical Exam Vital Signs / I&Os Vital Signs Date Time Temp Pulse Resp B/P Pulse O2 O2 Flow FiO2 Ox Delivery Rate 09/24 1832 99.0 90 20 133/93 98 Room Air 0.0 09/24 1441 99.0 87 18 117/80 95 Room Air 0.0 09/24 1042 98.4 84 18 127/82 94 Room Air 09/24 0640 98.1 76 18 122/84 96 Room Air 09/24 0245 98.4 85 16 130/80 95 Room Air 0.0 09/23 2154 100.4 86 16 132/80 97 Nasal 2.0 Cannula 09/23 2020 Nasal 2.0 Cannula I&O 09/23 0800 09/23 1600 09/24 0000 Intake Total 3335 1823 975 Output Total 1400 4050 Balance 1935 1823 -3075 General Appearance Alert, Oriented X3, No acute distress HEENT PERRLA, EOMI, Moist mucous membranes Lungs Normal exam, Clear to auscultation, Normal air movement Cardiovascular Regular rate and rhythm, Normal S1 and S2, No murmurs, gallops, rubs Abdomen Soft, No tenderness, No guarding, No rebound, No masses, No hepatosplenomegaly Extremities No clubbing, No edema, Normal pulses, Strength = upper ext's, Strength = lower ext's Skin No Rashes, No Breakdown, No Significant Lesions Neurological Normal speech, Sensation intact, Reflexes 2+ and equal, Cranial nerves intact, No lateralizing signs LAB Results Laboratory Tests 09/24 0630 Chemistry Plasma Sodium (136 - 145 mmol/L) 138 Plasma Potassium (3.5 - 5.1 mmol/L) 3.2 Plasma Chloride (98 - 107 mmol/L) 107 CO2 (Enzymatic) (21 - 32 mmol/L) 21 BUN (7 - 18 mg/dL) 1 Creatinine (0.6 - 1.3 mg/dL) 0.4 Est GFR ( Amer) (mL/min) >60 Est GFR (Non-Af Amer) (mL/min) >60 Glucose (70 - 110 mg/dL) 51 Plasma Calcium (8.5 - 10.1 mg/dL) 7.7 Total Bilirubin (0.0 - 1.0 mg/dL) 0.5 AST (15 - 37 U/L) 49 ALT (12 - 78 U/L) 36 Alkaline Phosphatase (46 - 116 U/L) 145 Total Protein (6.4 - 8.2 g/dL) 4.7 Albumin (3.3 - 5.0 g/dL) 2.2 Lipase (73 - 393 U/L) 490 Hematology WBC (4.5 - 11.5 K/uL) 15.5 RBC (4.00 - 5.20 M/uL) 3.00 Hgb (12.0 - 16.0 gm/dL) 9.0 Hct (36.0 - 46.0 %) 28.1 MCV (80 - 100 fL) 94 MCH (26 - 34 pg) 30 RDW (11.6 - 14.8 %) 20.6 Neut % (Auto) (50 - 75 %) 86.5 Lymph % (Auto) (25 - 40 %) 5.8 [place] % (Auto) (3 - 14 %) 5.4 Eos % (Auto) (0 - 4 %) 2.0 Baso % (Auto) (0 - 2 %) 0.3 Plt Count, EDTA (150 - 400 K/uL) 272 RBC Morphology (60260 A) 1+ STOMATOCYTES PUBS MCHC (31 - 37 g/dL) 32 Assessment and Plan Problem List 1. Pancreatitis Plan - stable and improving - will resume diet once wbc count resolves and lipase is in normal range - will c/w pain regimen - will c/w IV fluids
[2016-09-24 18:32] VITALS: BP 133/93
[2016-09-24 23:15] VITALS: BP 131/89
[2016-09-25] VITALS (20 sets, daily range): BP systolic 117–142; BP diastolic 82–112
--- NOTE | 2016-09-25 19:18 | Progress Note ---
Subjective General Patient seen and examined. Patient last night was seen to go into acute withdrawals from alcohol. Patient was hallucinating in her room and became severly agitated. Patients withdrawal symptoms were controlled with ativan. Patient transferred to the ICU and monitored. Constitutional Other (too confused to provide histor). Physical Exam Vital Signs / I&Os Vital Signs Date Time Temp Pulse Resp B/P Pulse O2 O2 Flow FiO2 Ox Delivery Rate 09/25 1805 97.5 90 24 142/98 93 Room Air 09/25 1735 80 22 130/92 95 Room Air 09/25 1609 84 24 130/95 97 Room Air 09/25 1525 89 20 124/93 99 Room Air 09/25 1417 100.8 81 24 124/90 97 Room Air 09/25 1300 90 20 131/99 98 Room Air 0.0 09/25 1200 93 20 138/93 98 Room Air 0.0 09/25 1109 55 18 136/93 97 Room Air 0.0 09/25 1038 98.1 56 16 137/98 96 Room Air 0.0 09/25 1024 2.0 09/25 0907 99.0 70 20 138/91 98 Room Air 09/25 0730 Room Air 09/25 0700 99.0 111 22 133/92 96 Room Air 0.0 09/25 0524 2.0 09/25 0453 109 16 125/91 92 09/25 0431 109 117/88 09/25 0411 136 137/112 136 09/25 0235 99.3 126 20 139/86 97 09/24 2315 98.4 84 16 131/89 94 Room Air I&O 09/24 0800 09/24 1600 09/25 0000 Intake Total 3071 2902 Output Total 3400 1950 2650 Balance -329 -1950 252 General Appearance Alert, Oriented X3, No acute distress HEENT Atraumatic, EOMI, Moist mucous membranes Lungs Clear to auscultation, Normal air movement Cardiovascular Regular rate and rhythm, Normal S1 and S2, No murmurs, gallops, rubs Abdomen Soft, No tenderness, No rebound, No hepatosplenomegaly Extremities No clubbing, No edema, Normal pulses, No tenderness Skin No Breakdown LAB Results Laboratory Tests 09/25 0555 Chemistry Plasma Sodium (136 - 145 mmol/L) 139 Plasma Potassium (3.5 - 5.1 mmol/L) 2.7 Plasma Chloride (98 - 107 mmol/L) 105 CO2 (Enzymatic) (21 - 32 mmol/L) 26 BUN (7 - 18 mg/dL) 1 Creatinine (0.6 - 1.3 mg/dL) 0.5 Est GFR ( Amer) (mL/min) >60 Est GFR (Non-Af Amer) (mL/min) >60 Glucose (70 - 110 mg/dL) 88 Plasma Calcium (8.5 - 10.1 mg/dL) 7.6 Plasma Magnesium (1.8 - 2.4 mg/dL) 1.6 Total Bilirubin (0.0 - 1.0 mg/dL) 0.6 AST (15 - 37 U/L) 35 ALT (12 - 78 U/L) 30 Alkaline Phosphatase (46 - 116 U/L) 127 Total Protein (6.4 - 8.2 g/dL) 5.5 Albumin (3.3 - 5.0 g/dL) 2.2 Lipase (73 - 393 U/L) 248 Hematology WBC (4.5 - 11.5 K/uL) 12.8 RBC (4.00 - 5.20 M/uL) 2.99 Hgb (12.0 - 16.0 gm/dL) 9.2 Hct (36.0 - 46.0 %) 28.0 MCV (80 - 100 fL) 94 MCH (26 - 34 pg) 31 RDW (11.6 - 14.8 %) 21.3 Neut % (Auto) (50 - 75 %) 82.4 Lymph % (Auto) (25 - 40 %) 7.7 [place] % (Auto) (3 - 14 %) 8.5 Eos % (Auto) (0 - 4 %) 1.2 Baso % (Auto) (0 - 2 %) 0.2 Plt Count, EDTA (150 - 400 K/uL) 351 RBC Morphology (05577 A) HYPOCHROMIA +2 PUBS MCHC (31 - 37 g/dL) 33 Assessment and Plan Problem List 1. Pancreatitis Plan currently resolved - will continue to trend cbc - no need to further trend lipase 2. Gastric bypass status for obesity 3. Alcohol withdrawal Plan - pt not forth coming with her full drinking history - will c/w prn ativan - will continue to monitor in the ICU setting - will provide thiamine and folate supplementation given severity of alcohol abuse
[2016-09-26] VITALS (12 sets, daily range): BP systolic 105–129; BP diastolic 76–96
--- NOTE | 2016-09-26 07:27 | Progress Note ---
Subjective General Note Date: September 26, 2016 Admission Date: September 21, 2016 Hospital Day: 6 PCP: None Status: Inpatient Advanced Directive: Full Code Room: 304 Brief History: The patient is a 30-year-old white female with a significant past make a history of alcohol abuse, gallstone pancreatitis, obesity status post gastric bypass surgery, who presented to [facility] emergency department on the day of admission secondary to complaints of abdominal pain. [facility] ER findings were consistent with acute pancreatitis suspected secondary to alcohol abuse. Secondary to the above , the patient was admitted by Leo Sewell M.D. for further evaluation and treatment. For other history present illness, past medical history, family history, social history, review of systems, and admission physical examination please see the patient's history and physical examination and ER visit note in the patient's medical record. Subjective: The patient states her status is improved today. Abdominal pain improving. Wishes to advance diet. Mental status improving but remains confused Patient requests: None other than advancing diet Medications and Allergies Medications Current Medications Sig/Mj Start time Last Medication Dose Route Stop Time Status Admin Lorazepam 1 MG Q6H 09/28 0600 AC PO 09/29 0300 Lorazepam 1 MG Q6H 09/28 0600 AC IV 09/29 0300 Lorazepam 1 MG Q6H 09/27 0600 AC PO 09/28 0300 Lorazepam 1 MG Q6H 09/27 0600 AC IV 09/28 0300 Lorazepam 1 MG Q4H 09/26 0400 AC PO 09/27 0300 Lorazepam 1 MG Q4H 09/26 0400 AC IV 09/27 0300 Lorazepam 0.5 MG Q30MIN PRN 09/25 0645 AC PO Lorazepam 0.5 MG Q30MIN PRN 09/25 0645 AC 09/25 IV 1031 Metoprolol Tartrate 5 MG Q3H PRN 09/25 0430 AC 09/25 IV 1940 Diphenhydramine HCl 25 MG QHS PRN 09/22 1945 AC 09/24 IV 2149 Multivit/ 1 TAB DAILY 09/22 09 AC 09/25 Folic Acid/Iron PO 0839 Thiamine HCl 100 MG DAILY 09/22 09 AC 09/25 PO 0839 Pantoprazole Sodium 40 MG DAILY@0600 09/22 0600 AC 09/26 IV 0601 Ondansetron HCl See Dose Q4H PRN 09/22 0400 AC 09/25 Insts (1) IV 0342 Promethazine HCl 6.25 MG Q6H PRN 09/22 0400 AC 09/22 IV 0435 Hydromorphone HCl 1 MG Q1H PRN 09/21 2330 AC 09/26 IV 0047 Nicotine 14 MG QAM 09/21 2248 AC 09/25 TOP 0839 Diazepam 5 MG PRN PRN 09/21 2030 AC IV Acetaminophen 650 MG Q6H PRN 09/21 181 AC PO Sodium Chloride 1,000 ML ASDIRECTED 09/21 181 AC 09/26 IV 0034 Dose Instructions: (1)Ondansetron HCl: 4 - 8 MG Allergies Coded Allergies: Codeine (Severe, "MAKES ME FEEL WEIRD, LIKE MY THROAT IS CLOSING" 09/21/16) Physical Exam Vital Signs / I&Os Vital Signs Date Time Temp Pulse Resp B/P Pulse O2 O2 Flow FiO2 Ox Delivery Rate 09/26 0712 89 20 129/94 94 Room Air 0.0 09/26 0631 98.6 96 20 125/86 98 Room Air 0.0 09/26 0400 97.5 85 94 09/26 0315 80 12 105/78 98 09/26 0211 80 12 115/84 96 Room Air 09/26 0055 98.1 09/26 0000 91 121/91 94 09/25 2300 84 127/97 97 09/25 2214 83 16 118/82 97 Room Air 09/25 2118 94 18 130/91 98 Room Air 09/25 2020 89 18 132/94 99 Room Air 09/25 1927 Room Air 09/25 1900 81 20 136/104 93 Room Air 09/25 1805 97.5 90 24 142/98 93 Room Air 09/25 1735 80 22 130/92 95 Room Air 09/25 1609 84 24 130/95 97 Room Air 09/25 1525 89 20 124/93 99 Room Air 09/25 1417 100.8 81 24 124/90 97 Room Air 09/25 1300 90 20 131/99 98 Room Air 0.0 09/25 1200 93 20 138/93 98 Room Air 0.0 09/25 1109 55 18 136/93 97 Room Air 0.0 09/25 1038 98.1 56 16 137/98 96 Room Air 0.0 09/25 1024 2.0 09/25 0907 99.0 70 20 138/91 98 Room Air 09/25 0730 Room Air I&O 09/26 0000 09/25 1600 09/25 0800 Intake Total 1101 1005 2220 Output Total 2150 3435 1450 Balance -1049 -1420 770 General Appearance Cooperative, No acute distress, slightly lethargic Lungs Clear to auscultation, Normal air movement Cardiovascular Regular rate and rhythm, Normal S1 and S2 Abdomen Normal bowel sounds, Soft, No tenderness Extremities No cyanosis, No clubbing, No edema Neurological Cranial nerves intact, No lateralizing signs Psych/Mental Status Confused LAB Results Laboratory Tests 09/26 09/26 0435 0430 Hematology WBC (4.5 - 11.5 K/uL) 9.0 RBC (4.00 - 5.20 M/uL) 3.26 Hgb (12.0 - 16.0 gm/dL) 9.8 Hct (36.0 - 46.0 %) 30.4 MCV (80 - 100 fL) 93 MCH (26 - 34 pg) 30 RDW (11.6 - 14.8 %) 21.7 Neut % (Auto) (50 - 75 %) 68.5 Lymph % (Auto) (25 - 40 %) 17.0 [place] % (Auto) (3 - 14 %) 9.7 Eos % (Auto) (0 - 4 %) 3.3 Baso % (Auto) (0 - 2 %) 1.5 Plt Count, EDTA (150 - 400 K/uL) 406 RBC Morphology ANISOCYTOSIS +1 PUBS MCHC (31 - 37 g/dL) 32 Urines Urine Color YELLOW Urine Appearance CLEAR Urine pH (5.0 - 8.0) 7.0 Ur Specific [place] (1.010 - 1.030) 1.015 Urine Protein (NEGATIVE) NEGATIVE Urine Ketones (NEGATIVE) 2+ Urine Blood (NEGATIVE) NEGATIVE Urine Nitrite (NEGATIVE) NEGATIVE Urine Bilirubin (NEGATIVE) NEGATIVE Urine Urobilinogen (0.2 - 1.0 EU/dL) 1.0 Ur Leukocyte Esterase (NEGATIVE) NEGATIVE Urine RBC (0 - 1 rbc/hpf) 0-1 Urine WBC (0 - 1 wbc/hpf) 0-1 Ur Epithelial Cells (0 - 5 EPI/hpf) 0-1 Urine Bacteria (NONE SEEN) NONE SEEN Urine Glucose (NEGATIVE) NEGATIVE Urine Comment CULT NOT INDICATED Assessment and Plan Problem List 1. Pancreatitis Plan -Resolved -Advance diet -Plan discharge in 1-2 days with improved mental status 2. Alcohol withdrawal Plan -Patient in alcohol withdrawal -Mental status remains abnormal -Status improved today -Remains confused slightly lethargic on medications -Plan discharge in 1-2 days with improved status Current status: Fair, unstable Anticipated discharge date: Anticipated discharge 1-2 days Anticipated discharge placement: Home Patient care time: Time spent in chart review, patient interview, physical exam, CPOE, and care documentation: 35 minutes Visit to patient today: 1 Complexity of care: Moderate E&M Codes Rounding: Inpt-High/[id number]
[2016-09-27 06:38] VITALS: BP 118/86
--- NOTE | 2016-09-27 08:05 | Progress Note ---
Subjective General Note Date: September 27, 2016 Admission Date: September 21, 2016 Hospital Day: 7 PCP: None Status: Inpatient Advanced Directive: Full Code Room: 304 Brief History: The patient is a 30-year-old white female with a significant past make a history of alcohol abuse, gallstone pancreatitis, obesity status post gastric bypass surgery, who presented to [facility] emergency department on the day of admission secondary to complaints of abdominal pain. [facility] ER findings were consistent with acute pancreatitis suspected secondary to alcohol abuse. Secondary to the above , the patient was admitted by Leo Sewell M.D. for further evaluation and treatment. For other history present illness, past medical history, family history, social history, review of systems, and admission physical examination please see the patient's history and physical examination and ER visit note in the patient's medical record. Subjective: Doing well. No complaints. Ready for discharge Patient requests: None Medications and Allergies Medications Current Medications Sig/Mj Start time Last Medication Dose Route Stop Time Status Admin Lorazepam 1 MG Q6H 09/28 0600 AC PO 09/29 0300 Lorazepam 1 MG Q6H 09/28 0600 AC IV 09/29 0300 Lorazepam 1 MG Q6H 09/27 0600 AC 09/27 PO 09/28 0300 0531 Lorazepam 1 MG Q6H 09/27 0600 AC IV 09/28 0300 Acetaminophen/ See Dose Q6H PRN 09/26 0845 AC 09/27 Hydrocodone Bitart Insts (1) PO 0349 Lorazepam 0.5 MG Q30MIN PRN 09/25 0645 AC PO Lorazepam 0.5 MG Q30MIN PRN 09/25 0645 AC 09/25 IV 1031 Metoprolol Tartrate 5 MG Q3H PRN 09/25 0430 AC 09/25 IV 1940 Diphenhydramine HCl 25 MG QHS PRN 09/22 1945 AC 09/24 IV 2149 Multivit/ 1 TAB DAILY 09/22 09 AC 09/26 Folic Acid/Iron PO 0833 Thiamine HCl 100 MG DAILY 09/22 09 AC 09/26 PO 0833 Pantoprazole Sodium 40 MG DAILY@0600 09/22 0600 AC 09/27 IV 0528 Ondansetron HCl See Dose Q4H PRN 09/22 0400 AC 09/25 Insts (2) IV 0342 Promethazine HCl 6.25 MG Q6H PRN 09/22 0400 AC 09/22 IV 0435 Hydromorphone HCl 1 MG Q1H PRN 09/21 2330 AC 09/27 IV 0450 Nicotine 14 MG QAM 09/21 2248 09/26 TOP 0833 Diazepam 5 MG PRN PRN 09/21 2030 AC IV Acetaminophen 650 MG Q6H PRN 09/21 181 AC PO Sodium Chloride 1,000 ML ASDIRECTED 09/21 1814 AC 09/26 IV 2230 Dose Instructions: (1)Acetaminophen/Hydrocodone Bitart: 1 - 2 TABLETS (2)Ondansetron HCl: 4 - 8 MG Allergies Coded Allergies: Codeine (Severe, "MAKES ME FEEL WEIRD, LIKE MY THROAT IS CLOSING" 09/21/16) Physical Exam Vital Signs / I&Os Vital Signs Date Time Temp Pulse Resp B/P Pulse O2 O2 Flow FiO2 Ox Delivery Rate 09/27 0638 98.1 93 15 118/86 97 Room Air 09/26 212 98.1 76 18 124/88 100 09/26 1819 79 20 110/77 97 09/26 1452 98.2 73 20 122/87 97 Room Air 0.0 09/26 1115 84 18 117/86 94 Room Air 0.0 09/26 1031 98.2 96 22 126/92 98 Room Air 0.0 09/26 0900 101 21 107/76 94 Room Air 0.0 I&O 09/27 0000 09/26 1600 09/26 0800 Intake Total 1990 330 740 Output Total 0 1825 1300 Balance -209 -1495 -560 General Appearance Alert, Oriented X3, Cooperative, No acute distress Lungs Clear to auscultation Cardiovascular Regular rate and rhythm, Normal S1 and S2 Abdomen Normal bowel sounds, Soft, No tenderness Extremities No cyanosis, No clubbing, No edema Neurological Cranial nerves intact, No lateralizing signs Psych/Mental Status Mental status normal, Mood normal LAB Results Laboratory Tests 09/27 09/26 09/26 0645 0834 0833 Chemistry Plasma Sodium (136 - 145 mmol/L) 142 Plasma Potassium (3.5 - 5.1 mmol/L) 3.2 Plasma Chloride (98 - 107 mmol/L) 108 CO2 (Enzymatic) (21 - 32 mmol/L) 25 BUN (7 - 18 mg/dL) 1 Creatinine (0.6 - 1.3 mg/dL) 0.5 Est GFR ( Amer) (mL/min) >60 Est GFR (Non-Af Amer) (mL/min) >60 Glucose (70 - 110 mg/dL) 102 Plasma Calcium (8.5 - 10.1 mg/dL) 8.0 Plasma Magnesium Cancelled Hematology WBC Cancelled RBC Cancelled Hgb Cancelled Hct Cancelled MCV Cancelled MCH Cancelled RDW Cancelled Neut % (Auto) Cancelled Lymph % (Auto) Cancelled [place] % (Auto) Cancelled Band Neutrophils % Cancelled Plt Count, EDTA Cancelled PUBS MCHC Cancelled Assessment and Plan Problem List 1. Pancreatitis Plan -resolved -DC today. 2. Alcohol withdrawal Plan -resolved -DC'd today 3. Hypokalemia Status Acute Onset Date Unknown Plan -Mild -Potassium 3.2 -KCl 40 mEq by mouth -Monitor 4. Hypomagnesemia Status Acute Onset Date Unknown Plan -Resolved -Recheck this a.m. -Monitor Current status: Fair, improved Anticipated discharge date: Anticipated discharge this p.m. or in a.m. Anticipated discharge placement: Home Patient care time: Time spent in chart review, patient interview, physical exam, CPOE, and care documentation: greater than 30 minutes Visit to patient today: 2 Complexity of care: Moderate E&M Codes Discharge: Inpt >30 min spent/[id number]
[2016-09-27 10:36] VITALS: BP 110/87
[2016-09-27] MEDS ORDERED: NICOTINE T14 MG/24 H TOP (11:18)
[2016-09-27] MEDS ORDERED: MAPAP325 MG PO (11:18)
[2016-09-27] MEDS ORDERED: VOL-TAB RX PO (11:18)
--- NOTE | 2016-09-27 11:19 | Provider's Discharge Care Plan ---
Problem, Goal, Plan Problem List 1. Pancreatitis Goals: Improve disease control, Prevent disease progress Instructions: Follow up as directed, Take meds as directed, No alcohol consumption 2. Tobacco abuse Goals: Improve disease control, Improve function, Improved health/wellness, Prevent disease progress Instructions: Follow up as directed, Take meds as directed, Stop smoking 3. Hypomagnesemia Goals: Improve disease control, Prevent disease progress Instructions: Follow up as directed, Take meds as directed 4. Hypokalemia Goals: Improve disease control, Prevent disease progress Instructions: Follow up as directed, Take meds as directed
[2016-09-27] MEDS ORDERED: KLOR-CON M2020 MEQ PO (11:20)
[2016-09-27] MEDS ORDERED: MAG6464 MG PO (11:20)
--- NOTE | 2016-09-27 11:25 | Discharge Summary ---
Discharge Summary Report Admit Date 09/21/16 Discharge Date 09/27/16 Admission Diagnosis 1. Pancreatitis 2. Alcohol abuse 3. Tobacco abuse Discharge Diagnosis 1. Pancreatitis 2. Alcohol abuse 3. Tobacco abuse 4. Hypokalemia 5. Hypomagnesemia 6. Alcohol withdrawal syndrome Brief History The patient is a 30-year-old white female with a significant past make a history of alcohol abuse, gallstone pancreatitis, obesity status post gastric bypass surgery, who presented to [facility] emergency department on the day of admission secondary to complaints of abdominal pain. [facility] ER findings were consistent with acute pancreatitis suspected secondary to alcohol abuse. Secondary to the above , the patient was admitted by Leo Sewell M.D. for further evaluation and treatment. For other history present illness, past medical history, family history, social history, review of systems, and admission physical examination please see the patient's history and physical examination and ER visit note in the patient's medical record. Hospital Course The following problems and their management were noted during the patient's hospitalization: 1. Pancreatitis The patient presented with findings of Alcohol inducedpancreatitis. This resolved during her hospitalization. The patient was taking well orally at the time of discharge. 2. Alcohol abuse The patient had a history of alcohol abuse/dependence. She experiencedalcohol withdrawal syndrome during her hospital stay. This resolved completely prior to discharge. Outpatient follow-up with AA was recommended to patient. 3. Tobacco abuse The patient has a history of nicotine dependence-smoking. She underwent smoking cessation education during her hospital stay. She was encouraged to follow a tobacco abstinence program postdischarge. The patient was placed on NicoDerm patch at the time of discharge. 4. Hypokalemia The patient had findings of hypokalemia. She was treated with potassium supplementation. The patient was placed on potassium supplementation on discharge. 5. Hypomagnesemia The patient had findings of hypomagnesemia. She received IV/by mouth supplementation. The patient was placed on magnesium supplementation on discharge. 6. Alcohol withdrawal syndrome The patient experienced alcoholic ulcer syndrome during her hospital stay. This resolved prior to discharge. She was encouraged to follow a alcohol abstinence program postdischarge General Appearance Alert, Oriented X3, Cooperative, No acute distress Lungs Clear to auscultation, Normal air movement Cardiovascular Regular Rate, Normal S1, Normal S2 Abdomen Normal bowel sounds, Soft, No tenderness Neurological Grossly normal Psych/Mental Status Mental status NL, Mood NL Lab/Imaging Laboratory Tests 09/27 0628 Chemistry Plasma Sodium (136 - 145 mmol/L) 142 Plasma Potassium (3.5 - 5.1 mmol/L) 3.2 Plasma Chloride (98 - 107 mmol/L) 108 CO2 (Enzymatic) (21 - 32 mmol/L) 25 BUN (7 - 18 mg/dL) 1 Creatinine (0.6 - 1.3 mg/dL) 0.5 Est GFR ( Amer) (mL/min) >60 Est GFR (Non-Af Amer) (mL/min) >60 Glucose (70 - 110 mg/dL) 102 Plasma Calcium (8.5 - 10.1 mg/dL) 8.0 Discharge Instructions/Meds For other recommendations regarding discharge diet, activity, followup, and discharge medications please see the patient's discharge instructions. Discharge condition: Good, improved Greater than 30 min. was spent in the patient's discharge preparation including discharge interview and physical examination, progress note, discharge instructions, and discharge summary The patient was interviewed and examined on the day of discharge. E&M Codes Discharge: Inpt >30 min spent/[id number]
--- NOTE | 2016-09-27 11:25 | Discharge Summary ---
Discharge Summary Report Admit Date 09/21/16 Discharge Date 09/27/16 Admission Diagnosis 1. Pancreatitis 2. Alcohol abuse 3. Tobacco abuse Discharge Diagnosis 1. Pancreatitis 2. Alcohol abuse 3. Tobacco abuse 4. Hypokalemia 5. Hypomagnesemia 6. Alcohol withdrawal syndrome Brief History The patient is a 30-year-old white female with a significant past make a history of alcohol abuse, gallstone pancreatitis, obesity status post gastric bypass surgery, who presented to [facility] emergency department on the day of admission secondary to complaints of abdominal pain. [facility] ER findings were consistent with acute pancreatitis suspected secondary to alcohol abuse. Secondary to the above , the patient was admitted by Leo Sewell M.D. for further evaluation and treatment. For other history present illness, past medical history, family history, social history, review of systems, and admission physical examination please see the patient's history and physical examination and ER visit note in the patient's medical record. Hospital Course The following problems and their management were noted during the patient's hospitalization: 1. Pancreatitis The patient presented with findings of Alcohol inducedpancreatitis. This resolved during her hospitalization. The patient was taking well orally at the time of discharge. 2. Alcohol abuse The patient had a history of alcohol abuse/dependence. She experiencedalcohol withdrawal syndrome during her hospital stay. This resolved completely prior to discharge. Outpatient follow-up with AA was recommended to patient. 3. Tobacco abuse The patient has a history of nicotine dependence-smoking. She underwent smoking cessation education during her hospital stay. She was encouraged to follow a tobacco abstinence program postdischarge. The patient was placed on NicoDerm patch at the time of discharge. 4. Hypokalemia The patient had findings of hypokalemia. She was treated with potassium supplementation. The patient was placed on potassium supplementation on discharge. 5. Hypomagnesemia The patient had findings of hypomagnesemia. She received IV/by mouth supplementation. The patient was placed on magnesium supplementation on discharge. 6. Alcohol withdrawal syndrome The patient experienced alcoholic ulcer syndrome during her hospital stay. This resolved prior to discharge. She was encouraged to follow a alcohol abstinence program postdischarge General Appearance Alert, Oriented X3, Cooperative, No acute distress Lungs Clear to auscultation, Normal air movement Cardiovascular Regular Rate, Normal S1, Normal S2 Abdomen Normal bowel sounds, Soft, No tenderness Neurological Grossly normal Psych/Mental Status Mental status NL, Mood NL Lab/Imaging Laboratory Tests 09/27 0663 Chemistry Plasma Sodium (136 - 145 mmol/L) 142 Plasma Potassium (3.5 - 5.1 mmol/L) 3.2 Plasma Chloride (98 - 107 mmol/L) 108 CO2 (Enzymatic) (21 - 32 mmol/L) 25 BUN (7 - 18 mg/dL) 1 Creatinine (0.6 - 1.3 mg/dL) 0.5 Est GFR ( Amer) (mL/min) >60 Est GFR (Non-Af Amer) (mL/min) >60 Glucose (70 - 110 mg/dL) 102 Plasma Calcium (8.5 - 10.1 mg/dL) 8.0 Discharge Instructions/Meds For other recommendations regarding discharge diet, activity, followup, and discharge medications please see the patient's discharge instructions. Discharge condition: Good, improved Greater than 30 min. was spent in the patient's discharge preparation including discharge interview and physical examination, progress note, discharge instructions, and discharge summary The patient was interviewed and examined on the day of discharge. E&M Codes Discharge: Inpt >30 min spent/[id number]
== END 2016-09-27 13:15 | disposition home or self-care (01) | DRG 282 ==
LOC: ED SRH 14:39 → TRANS SRH 18:01 → CC SRH 19:45 → ACUTE2 SRH 09-23 01:10 → CC SRH 09-25 05:58
PROVIDERS: ADMIT Emergency Medicine
DX: K85.20 Alcohol induced acute pancreatitis without necrosis or infection (principal); E83.42 Hypomagnesemia; E87.6 Hypokalemia; F10.239 Alcohol dependence with withdrawal, unspecified; R41.82 Altered mental status, unspecified; Z72.0 Tobacco use; Z98.84 Bariatric surgery status; M54.2 Cervicalgia
CPT/HCPCS: 90004; 90047; 90074; 90100; 90469; 90616; 92010; 92132; 92235; 92530; 92690; 92720; 92760; 92761; 92762; 92763; 92764; 92765; 92766; 92767; 93070; 95059

== ENCOUNTER 2016-10-13 21:26 | Emergency (ER) | payer OTHER ==
[~2016-10-13 21:26] MED LIST: KLOR-CON M2020 MEQ PO; MAG6464 MG PO; MAPAP325 MG PO; NICOTINE T14 MG/24 H TOP; VOL-TAB RX PO
--- NOTE | 2016-10-13 21:52 | ED CLINICAL REPORT ---
Clinical Report - Physicians/Mid Levels [facility] [address] [place] [address] 10/13/2016 21:27 Patient: TOSIN MORALES Time Seen: 2138; upon arrival, initial patient contact, initial documentation, patient care assumed. Arrived- By private vehicle. Historian- patient. HISTORY OF PRESENT ILLNESS Chief Complaint: DENTAL PAIN. This started about 10 days ago and is still present. Pain described as severe. No sore throat, mouth sores, nasal discharge or congestion or ear pain. She has had toothache and jaw pain. Similar symptoms previously: None. Recent medical care: The patient was seen recently in the office. ( had all bottom teeth removed on 10/02, states she is really hurting and her next dental appt isn't for another week yet, and now there is pus coming from one of the teeth, she took x7 days of pcn and has special listarene mouthwash to use). REVIEW OF SYSTEMS No fever or difficulty breathing. All systems otherwise negative, except as recorded above. PAST HISTORY See nurses notes. PROBLEMS: Abscess. Staph Infections. Neck Pain. Immunizations. LNMP - Last Normal Menstrual Period. --14:49 Yvonne Velez R.N. Pancreatitis. --14:53 Yvonne Velez R.N. ADDITIONAL SURGERIES: Gallbladder Surgery. Gastric bypass. --14:50 Yvonne Velez R.N. SOCIAL HISTORY Light tobacco smoker. Regular alcohol use. No drug use. No recent travel. Is a local resident. FAMILY HISTORY Negative. ADDITIONAL NOTES The nursing notes have been reviewed with agreement regarding the chief complaint, HPI, ROS, PMH and patient medications and allergies. PHYSICAL EXAM Vital Signs: 10/13/2016 21:39 BP: 128/91. HR: 100. RR: 20. O2 saturation: 99%. Temp: 98 F. Pain level now: 8/10. Have been reviewed as normal and appear to be correct. Appearance: Alert. No acute distress. (pt smells of etoh). Head: Normal external inspection. Eyes: Pupils equal, round and reactive to light. Conjunctivae and eyelids normal. ENT: Ears normal. Nose normal. Pharynx normal. Lips normal. Gums normal. No trismus present. Uvula midline. (sutures intact in gum line, no dc seen, mild erythema on some of the gums, no swelling, extraction sites appear to be healing without any complications). Neck: Normal inspection. Trachea midline. No adenopathy. Thyroid normal. Neck supple. Respiratory: No respiratory distress. Skin: Normal skin color. No rash. Normal skin turgor. Extremities: Extremities exhibit normal ROM. Extremities nontender. Neuro: Oriented X 3. No motor deficit. No sensory deficit. PROGRESS AND PROCEDURES Course of Care: 21:52 10/13/16. pt has natalie report for some narcs, x3 rx for oxycodone 5mg #30 since 10/02, last rx filled on 10/10, see report for full details. Patient counseled in person regarding the patient's stable condition and diagnosis. Differential Diagnosis: Other possible considerations: substance abuse, dental pain, caries, abscess. Above considerations are based on history and physical exam. Differential diagnosis was discussed with patient. Disposition: Discharged home in good and unchanged condition (21:52). Condition: good and stable. CLINICAL IMPRESSION Moderate dental pain. INSTRUCTIONS (warm salt water gargles as discussed). Warnings: GENERAL WARNINGS: Return or contact your physician immediately if your condition worsens or changes unexpectedly, if not improving as expected, or if other problems arise. Specifically return if problem worsens. Prescription Medications: Cleocin 300 mg: take 1 capsule orally every 12 hours for 10 days. No refill. Naprosyn 500 mg tablets: take 1 orally every 12 hours as needed for pain. Dispense twenty (20). No refills. Substitution is permissible. Follow-up: Follow up with a dentist as scheduled even if well. Reason for referral: or sooner if needed. Summary of care provided to patient. Understanding of the discharge instructions verbalized by patient. (Electronically signed by Callie Patel A.R.N.P. 10/13/2016 23:08)
--- NOTE | 2016-10-13 21:52 | ED NURSING NOTES ---
Clinical Report - Nurses [facility] [address] [place] [address] 10/13/2016 21:27 Patient: TOSIN MORALES TRIAGE Triage time 21:33 Oct 13 2016. Chief Complaint: ABDOMINAL PAIN. --21:39 Krupa Conti Acuity: LEVEL 3. Chief Complaint: TOOTHACHE. SEPSIS SCREEN: Sepsis Screen: negative. Negative (no infection suspected/documented). Heart rate greater than 90. SANCHO COMA SCORE: [place] Coma Scale: 15- eyes open spontaneously (4); best verbal response- oriented x 4 (5); best motor response- obeys commands (6). --21:44 Krupa Conti 21:39 10/13/16. BP: 128/91. HR: 100. RR: 20. O2 saturation: 99% on room air. Temp: 98 F (oral). Pain level now: 8. --21:44 Krupa Conti. Weight: 63.5 kg stated. Height/Length: 66 inches Per Patient. BMI: 22.6. --21:43 Krupa Conti. Medications Oxycodone-Acetaminophen Oral. --22:06 Krupa Conti Amoxicillin Oral. --22:06 Krupa Conti. Allergies NSAIDs. --22:06 Krupa Conti. Medication/allergy information source: the patient. --21:44 Krupa Conti. History Arrived by private vehicle. Historian: patient. Accompanied by family. This started today. --21:39 Krupa Conti Arrived by private vehicle. Historian: patient. Accompanied by family. Primary physician (Elsie). ( Patient reports that she had thirty teeth pulled on the . She states that she has been feeling unwell and pain in her mouth. She reports noting some purulent discharge from her jaw. Patient states she has completed her antibiotics and pain medication and is not getting better.). She has a dental appointment scheduled. No enlarged lymph nodes. No swollen jaw. PAST MEDICAL HX: Immunizations: up-to-date. Last normal menstrual period- irregular. Uses an intrauterine device. SOCIAL HX: Light tobacco smoker (cigarette)- less than 1/2 a pack per day. Occasional alcohol use. No drug use. No infectious disease exposure. ABUSE ASSESSMENT: No report of abuse. FALL RISK ASSESSMENT: Fall risk assessment completed. No fall risk identified. NUTRITIONAL RISK ASSESSMENT: The nutritional risk assessment revealed no deficiencies. FUNCTIONAL ASSESSMENT: Functional assessment: no impairments noted. LEARNING NEEDS ASSESSMENT: The learning needs assessment revealed no barriers. SKIN INTEGRITY ASSESSMENT: Skin integrity risk assessment completed. No skin integrity risk identified. --21:44 Krupa Conti. PROBLEMS: Pancreatitis. Abscess. Staph Infections. Neck Pain. Immunizations. LNMP - Last Normal Menstrual Period. --22:06 Krupa Conti. ADDITIONAL SURGERIES: . Gallbladder Surgery. Gastric bypass. --22:06 Krupa Conti. Interventions ID band on patient. To treatment room. --21:44 Krupa Conti. PHYSICAL ASSESSMENT Patient gowned. GENERAL / NEURO / PSYCH: Alert. Oriented X 4. Appears in no acute distress. HEENT: Pupils equal, round and reactive to light. Pharynx within normal limits. ( scant yellow drainage noted from left bottom side of mouth). Mucous membranes are pink. RESPIRATORY: Respirations not labored. SKIN: Skin is warm and dry. --21:45 Krupa Conti. NURSING PROGRESS NOTES Pulse oximeter and NIBP monitor placed on patient; monitor alarms on. Patient gowned. Reassurance given to the patient. Two patient identifiers checked. Call light placed in reach. Side rails up x 1. Bed placed in lowest position. Brakes of bed on. Patient ready for evaluation- chart flagged and ED physician and PCP notified. --21:45 Krupa Conti. DISPOSITION / DISCHARGE 22:05 10/13/16. Condition at departure: stable. The goals identified in the patient's plan of care were met. No learning barriers present. Discharge instructions provided and reviewed with the patient. Reviewed medication(s) side effects, precautions, dosing and course information. Prescription(s) given to the patient. Reviewed need for increased fluid intake. Patient verbalized understanding. Written instructions provided in Turkish. ( Follow up with your dentist as directed, Return if symptoms worsen. Take tylenol for pain as you are unable to take NSAIDS. Salt water swishes in the mouth may be helpful.). The patient was discharged by the nurse practitioner. She was discharged home and accompanied by family. She left the Emergency Department ambulatory and via private vehicle. Family member driving. FALL RISK ASSESSMENT: Fall risk assessment completed. No fall risk identified. --00:16 Krupa Conti 22:05 10/13/16. BP: 108/79. HR: 91. RR: 20. O2 saturation: 98% on room air. Temp: 98 F (oral). Pain level now: 02/15. --00:16 Krupa Conti. Locked/Released at 10/14/2016 1:44 by Krupa Cotni,
--- NOTE | 2016-10-14 01:44 | ED DISCHARGE INSTRUCTIONS ---
Patient: TOSIN MORALES General Instructions [facility] VisitID: [id number] [place] [address] 30y, F Registration Date/Time: 10/13/2016 Moderate dental pain. INSTRUCTIONS (warm salt water gargles as discussed). Warnings: GENERAL WARNINGS: Return or contact your physician immediately if your condition worsens or changes unexpectedly, if not improving as expected, or if other problems arise. Specifically return if problem worsens. Prescription Medications: Cleocin 300 mg: take 1 capsule orally every 12 hours for 10 days. No refill. Naprosyn 500 mg tablets: take 1 orally every 12 hours as needed for pain. Dispense twenty (20). No refills. Substitution is permissible. Follow-up: Follow up with a dentist as scheduled even if well. Reason for referral: or sooner if needed. Summary of care provided to patient. Understanding of the discharge instructions verbalized by patient. ADDITIONAL INFORMATION Dental Pain A crack or cavity in the tooth, which exposes the sensitive inner area of the tooth can cause tooth pain. An infection in the gum or the root of the tooth can cause pain and swelling. The pain is often made worse by drinking hot or cold fluids, or biting on hard foods. Pain may spread from the tooth to the ear or jaw on the same side. Home Care: Avoid hot and cold foods and liquids since your tooth may be sensitive to temperature changes. If your tooth is chipped or cracked, or if there is a large open cavity, apply OIL OF CLOVES (available [id number] in drug stores) directly to the tooth to reduce pain. Some pharmacies carry an [id number] "toothache kit." This contains a paste, which can be applied over the exposed tooth to decrease sensitivity. A cold pack on your jaw over the sore area may help reduce pain. You may use acetaminophen (Tylenol) or ibuprofen (Motrin, Advil) to control pain, unless another medicine was prescribed. [ NOTE: If you have chronic liver or kidney disease or ever had a stomach ulcer or GI bleeding, talk with your doctor before using these medicines.] If you have signs of an infection, an antibiotic will be given. Take it as directed. Follow-Up as directed with a dentist. Your pain may go away with the treatment given. However, only a dentist can fully evaluate and treat the cause and prevent the pain from coming back again. TOOTHACHE IS A SIGN OF DISEASE IN YOUR TOOTH AND SHOULD BE EXAMINED AND TREATED BY A DENTIST. Get Prompt Medical Attention if any of the following occur: Your face becomes swollen or red Pain worsens or spreads to the neck Fever over 100.4 F (38.0 C) Unusual drowsiness; headache or stiff neck; weakness or fainting Pus drains from the tooth Difficulty swallowing or breathing Clindamycin Hydrochloride Oral capsule What is this medicine? CLINDAMYCIN (ADDIEIN vannesa WILLIAMSON sin) is a lincosamide antibiotic. It is used to treat certain kinds of bacterial infections. It will not work for colds, flu, or other viral infections. How should I use this medicine? Take this medicine by mouth with a full glass of water. Follow the directions on the prescription label. You can take this medicine with food or on an empty stomach. If the medicine upsets your stomach, take it with food. Take your medicine at regular intervals. Do not take your medicine more often than directed. Take all of your medicine as directed even if you think your are better. Do not skip doses or stop your medicine early. Talk to your sql etl developer regarding the use of this medicine in children. Special care may be needed. What side effects may I notice from receiving this medicine? Side effects that you should report to your doctor or health overnight caregiver as soon as possible: allergic reactions like skin rash, itching or hives, swelling of the face, lips, or tongue dark urine pain on swallowing redness, blistering, peeling or loosening of the skin, including inside the mouth unusual bleeding or bruising unusually weak or tired yellowing of eyes or skin Side effects that usually do not require medical attention (report to your doctor or health overnight caregiver if they continue or are bothersome): diarrhea itching in the rectal or genital area joint pain nausea, vomiting stomach pain What may interact with this medicine? chloramphenicol erythromycin kaolin products What if I miss a dose? If you miss a dose, take it as soon as you can. If it is almost time for your next dose, take only that dose. Do not take double or extra doses. Where should I keep my medicine? Keep out of the reach of children. Store at room temperature between 20 and 25 degrees C (68 and 77 degrees F). Throw away any unused medicine after the expiration date. What should I tell my health care provider before I take this medicine? They need to know if you have any of these conditions: kidney disease liver disease stomach problems like colitis an unusual or allergic reaction to clindamycin, lincomycin, or other medicines, foods, dyes like tartrazine or preservatives or trying to get breast-feeding What should I watch for while using this medicine? Tell your doctor or healthcare professional if your symptoms do not start to get better or if they get worse. Do not treat diarrhea with over the counter products. Contact your doctor if you have diarrhea that lasts more than 2 days or if it is severe and watery. Naproxen Sodium Oral tablet What is this medicine? NAPROXEN (na PROX en) is a non-steroidal anti-inflammatory drug (NSAID). It is used to reduce swelling and to treat pain. This medicine may be used for dental pain, headache, or painful monthly periods. It is also used for painful joint and muscular problems such as arthritis, tendinitis, bursitis, and gout. How should I use this medicine? Take this medicine by mouth with a glass of water. Follow the directions on the prescription label. Take it with food if your stomach gets upset. Try to not lie down for at least 10 minutes after you take it. Take your medicine at regular intervals. Do not take your medicine more often than directed. Long-term, continuous use may increase the risk of heart attack or stroke. A special MedGuide will be given to you by the pharmacist with each prescription and refill. Be sure to read this information carefully each time. Talk to your sql etl developer regarding the use of this medicine in children. Special care may be needed. What side effects may I notice from receiving this medicine? Side effects that you should report to your doctor or health overnight caregiver as soon as possible: black or bloody stools, blood in the urine or vomit blurred vision chest pain difficulty breathing or wheezing nausea or vomiting severe stomach pain skin rash, skin redness, blistering or peeling skin, hives, or itching slurred speech or weakness on one side of the body swelling of eyelids, throat, lips unexplained weight gain or swelling unusually weak or tired yellowing of eyes or skin Side effects that usually do not require medical attention (report to your doctor or health overnight caregiver if they continue or are bothersome): constipation headache heartburn What may interact with this medicine? alcohol aspirin cidofovir diuretics lithium methotrexate other drugs for inflammation like ketorolac or prednisone pemetrexed probenecid warfarin What if I miss a dose? If you miss a dose, take it as soon as you can. If it is almost time for your next dose, take only that dose. Do not take double or extra doses. Where should I keep my medicine? Keep out of the reach of children. Store at room temperature between 15 and 30 degrees C (59 and 86 degrees F). Keep container tightly closed. Throw away any unused medicine after the expiration date. What should I tell my health care provider before I take this medicine? They need to know if you have any of these conditions: asthma cigarette smoker drink more than 3 alcohol containing drinks a day heart disease or circulation problems such as heart failure or leg edema (fluid retention) high blood pressure kidney disease liver disease stomach bleeding or ulcers an unusual or allergic reaction to naproxen, aspirin, other NSAIDs, other medicines, foods, dyes, or preservatives or trying to get breast-feeding What should I watch for while using this medicine? Tell your doctor or health overnight caregiver if your pain does not get better. Talk to your doctor before taking another medicine for pain. Do not treat yourself. This medicine does not prevent heart attack or stroke. In fact, this medicine may increase the chance of a heart attack or stroke. The chance may increase with longer use of this medicine and in people who have heart disease. If you take aspirin to prevent heart attack or stroke, talk with your doctor or health overnight caregiver. Do not take other medicines that contain aspirin, ibuprofen, or naproxen with this medicine. Side effects such as stomach upset, nausea, or ulcers may be more likely to occur. Many medicines available without a prescription should not be taken with this medicine. This medicine can cause ulcers and bleeding in the stomach and intestines at any time during treatment. Do not smoke cigarettes or drink alcohol. These increase irritation to your stomach and can make it more susceptible to damage from this medicine. Ulcers and bleeding can happen without warning symptoms and can cause . You may get drowsy or dizzy. Do not drive, use machinery, or do anything that needs mental alertness until you know how this medicine affects you. Do not stand or sit up quickly, especially if you are an older patient. This reduces the risk of dizzy or fainting spells. This medicine can cause you to bleed more easily. Try to avoid damage to your teeth and gums when you brush or floss your teeth. You have been given the following additional information: Dental Pain Clindamycin Hydrochloride Oral capsule Naproxen Sodium Oral tablet (Electronically signed by Callie Patel A.R.N.P. 10/13/2016 23:08)
--- NOTE | 2016-10-14 01:44 | ED DISCHARGE INSTRUCTIONS ---
Patient: TOSIN MORALES General Instructions [facility] VisitID: [id number] [place] [address] 30y, F Registration Date/Time: 10/13/2016 Moderate dental pain. INSTRUCTIONS (warm salt water gargles as discussed). Warnings: GENERAL WARNINGS: Return or contact your physician immediately if your condition worsens or changes unexpectedly, if not improving as expected, or if other problems arise. Specifically return if problem worsens. Prescription Medications: Cleocin 300 mg: take 1 capsule orally every 12 hours for 10 days. No refill. Naprosyn 500 mg tablets: take 1 orally every 12 hours as needed for pain. Dispense twenty (20). No refills. Substitution is permissible. Follow-up: Follow up with a dentist as scheduled even if well. Reason for referral: or sooner if needed. Summary of care provided to patient. Understanding of the discharge instructions verbalized by patient. ADDITIONAL INFORMATION Dental Pain A crack or cavity in the tooth, which exposes the sensitive inner area of the tooth can cause tooth pain. An infection in the gum or the root of the tooth can cause pain and swelling. The pain is often made worse by drinking hot or cold fluids, or biting on hard foods. Pain may spread from the tooth to the ear or jaw on the same side. Home Care: Avoid hot and cold foods and liquids since your tooth may be sensitive to temperature changes. If your tooth is chipped or cracked, or if there is a large open cavity, apply OIL OF CLOVES (available [id number]-[id number]-[id number] in drug stores) directly to the tooth to reduce pain. Some pharmacies carry an copp-vey-gckrwyf "toothache kit." This contains a paste, which can be applied over the exposed tooth to decrease sensitivity. A cold pack on your jaw over the sore area may help reduce pain. You may use acetaminophen (Tylenol) or ibuprofen (Motrin, Advil) to control pain, unless another medicine was prescribed. [ NOTE: If you have chronic liver or kidney disease or ever had a stomach ulcer or GI bleeding, talk with your doctor before using these medicines.] If you have signs of an infection, an antibiotic will be given. Take it as directed. Follow-Up as directed with a dentist. Your pain may go away with the treatment given. However, only a dentist can fully evaluate and treat the cause and prevent the pain from coming back again. TOOTHACHE IS A SIGN OF DISEASE IN YOUR TOOTH AND SHOULD BE EXAMINED AND TREATED BY A DENTIST. Get Prompt Medical Attention if any of the following occur: Your face becomes swollen or red Pain worsens or spreads to the neck Fever over 100.4 F (38.0 C) Unusual drowsiness; headache or stiff neck; weakness or fainting Pus drains from the tooth Difficulty swallowing or breathing Clindamycin Hydrochloride Oral capsule What is this medicine? CLINDAMYCIN (ADDIEIN vannesa WILLIAMSON sin) is a lincosamide antibiotic. It is used to treat certain kinds of bacterial infections. It will not work for colds, flu, or other viral infections. How should I use this medicine? Take this medicine by mouth with a full glass of water. Follow the directions on the prescription label. You can take this medicine with food or on an empty stomach. If the medicine upsets your stomach, take it with food. Take your medicine at regular intervals. Do not take your medicine more often than directed. Take all of your medicine as directed even if you think your are better. Do not skip doses or stop your medicine early. Talk to your certified athletic trainer regarding the use of this medicine in children. Special care may be needed. What side effects may I notice from receiving this medicine? Side effects that you should report to your doctor or health caretaker grounds as soon as possible: allergic reactions like skin rash, itching or hives, swelling of the face, lips, or tongue dark urine pain on swallowing redness, blistering, peeling or loosening of the skin, including inside the mouth unusual bleeding or bruising unusually weak or tired yellowing of eyes or skin Side effects that usually do not require medical attention (report to your doctor or health caretaker grounds if they continue or are bothersome): diarrhea itching in the rectal or genital area joint pain nausea, vomiting stomach pain What may interact with this medicine? chloramphenicol erythromycin kaolin products What if I miss a dose? If you miss a dose, take it as soon as you can. If it is almost time for your next dose, take only that dose. Do not take double or extra doses. Where should I keep my medicine? Keep out of the reach of children. Store at room temperature between 20 and 25 degrees C (68 and 77 degrees F). Throw away any unused medicine after the expiration date. What should I tell my health care provider before I take this medicine? They need to know if you have any of these conditions: kidney disease liver disease stomach problems like colitis an unusual or allergic reaction to clindamycin, lincomycin, or other medicines, foods, dyes like tartrazine or preservatives or trying to get breast-feeding What should I watch for while using this medicine? Tell your doctor or healthcare professional if your symptoms do not start to get better or if they get worse. Do not treat diarrhea with over the counter products. Contact your doctor if you have diarrhea that lasts more than 2 days or if it is severe and watery. Naproxen Sodium Oral tablet What is this medicine? NAPROXEN (na PROX en) is a non-steroidal anti-inflammatory drug (NSAID). It is used to reduce swelling and to treat pain. This medicine may be used for dental pain, headache, or painful monthly periods. It is also used for painful joint and muscular problems such as arthritis, tendinitis, bursitis, and gout. How should I use this medicine? Take this medicine by mouth with a glass of water. Follow the directions on the prescription label. Take it with food if your stomach gets upset. Try to not lie down for at least 10 minutes after you take it. Take your medicine at regular intervals. Do not take your medicine more often than directed. Long-term, continuous use may increase the risk of heart attack or stroke. A special MedGuide will be given to you by the pharmacist with each prescription and refill. Be sure to read this information carefully each time. Talk to your certified athletic trainer regarding the use of this medicine in children. Special care may be needed. What side effects may I notice from receiving this medicine? Side effects that you should report to your doctor or health caretaker grounds as soon as possible: black or bloody stools, blood in the urine or vomit blurred vision chest pain difficulty breathing or wheezing nausea or vomiting severe stomach pain skin rash, skin redness, blistering or peeling skin, hives, or itching slurred speech or weakness on one side of the body swelling of eyelids, throat, lips unexplained weight gain or swelling unusually weak or tired yellowing of eyes or skin Side effects that usually do not require medical attention (report to your doctor or health caretaker grounds if they continue or are bothersome): constipation headache heartburn What may interact with this medicine? alcohol aspirin cidofovir diuretics lithium methotrexate other drugs for inflammation like ketorolac or prednisone pemetrexed probenecid warfarin What if I miss a dose? If you miss a dose, take it as soon as you can. If it is almost time for your next dose, take only that dose. Do not take double or extra doses. Where should I keep my medicine? Keep out of the reach of children. Store at room temperature between 15 and 30 degrees C (59 and 86 degrees F). Keep container tightly closed. Throw away any unused medicine after the expiration date. What should I tell my health care provider before I take this medicine? They need to know if you have any of these conditions: asthma cigarette smoker drink more than 3 alcohol containing drinks a day heart disease or circulation problems such as heart failure or leg edema (fluid retention) high blood pressure kidney disease liver disease stomach bleeding or ulcers an unusual or allergic reaction to naproxen, aspirin, other NSAIDs, other medicines, foods, dyes, or preservatives or trying to get breast-feeding What should I watch for while using this medicine? Tell your doctor or health caretaker grounds if your pain does not get better. Talk to your doctor before taking another medicine for pain. Do not treat yourself. This medicine does not prevent heart attack or stroke. In fact, this medicine may increase the chance of a heart attack or stroke. The chance may increase with longer use of this medicine and in people who have heart disease. If you take aspirin to prevent heart attack or stroke, talk with your doctor or health caretaker grounds. Do not take other medicines that contain aspirin, ibuprofen, or naproxen with this medicine. Side effects such as stomach upset, nausea, or ulcers may be more likely to occur. Many medicines available without a prescription should not be taken with this medicine. This medicine can cause ulcers and bleeding in the stomach and intestines at any time during treatment. Do not smoke cigarettes or drink alcohol. These increase irritation to your stomach and can make it more susceptible to damage from this medicine. Ulcers and bleeding can happen without warning symptoms and can cause . You may get drowsy or dizzy. Do not drive, use machinery, or do anything that needs mental alertness until you know how this medicine affects you. Do not stand or sit up quickly, especially if you are an older patient. This reduces the risk of dizzy or fainting spells. This medicine can cause you to bleed more easily. Try to avoid damage to your teeth and gums when you brush or floss your teeth. You have been given the following additional information: Dental Pain Clindamycin Hydrochloride Oral capsule Naproxen Sodium Oral tablet (Electronically signed by Callie Patel A.R.N.P. 10/13/2016 23:08)
--- NOTE | 2016-10-14 01:45 | ED MED RECONCILIATION SUMMARY ---
Patient: TOSIN MORALES Medication Reconciliation Report [facility] VisitID: [id number] [address] [place] [address] 30y, F Registration Date/Time: 10/13/2016 Weight: 63.5 kg Height/Length: 66 in. BMI: 22.6 ALLERGIES: NSAIDs The patient's Home Medications are listed below: THE FOLLOWING MEDICATIONS NEED TO BE RECONCILED: Amoxicillin Oral Oxycodone-Acetaminophen Oral The source(s) of the original Home Medication information: patient The following Medications were given to the patient in the Emergency Department: None. The following Medications were prescribed to the patient: Cleocin 300 mg: take 1 capsule orally every 12 hours for 10 days. No refill. -- Callie Patel A.R.N.P. Naprosyn 500 mg tablets: take 1 orally every 12 hours as needed for pain. Dispense twenty (20). No refills. Substitution is permissible. -- Callie Patel A.R.N.P.
--- NOTE | 2016-10-14 01:45 | ED MAR SUMMARY ---
..... Medication Administration Record [facility] [address] [place], [place] [id number] Patient: ODILIA MORALESJEANNINE Brink Visit ID: [id number] 30y, F Weight: 63.5 kg Height/Length: 66 in BMI: 22.6 ALLERGIES: NSAIDs
--- NOTE | 2016-10-14 01:45 | ED MAR SUMMARY ---
..... Medication Administration Record [facility] [address] [place], [place] [id number] Patient: ODILIA MORALESJEANNINE Brink Visit ID: [id number] 30y, F Weight: 63.5 kg Height/Length: 66 in BMI: 22.6 ALLERGIES: NSAIDs
--- NOTE | 2016-10-14 01:45 | ED MED RECONCILIATION SUMMARY ---
Patient: TOSIN MORALES Medication Reconciliation Report [facility] VisitID: [id number] [address] [place] [address] 30y, F Registration Date/Time: 10/13/2016 Weight: 63.5 kg Height/Length: 66 in. BMI: 22.6 ALLERGIES: NSAIDs The patient's Home Medications are listed below: THE FOLLOWING MEDICATIONS NEED TO BE RECONCILED: Amoxicillin Oral Oxycodone-Acetaminophen Oral The source(s) of the original Home Medication information: patient The following Medications were given to the patient in the Emergency Department: None. The following Medications were prescribed to the patient: Cleocin 300 mg: take 1 capsule orally every 12 hours for 10 days. No refill. -- Callie Patel A.R.N.P. Naprosyn 500 mg tablets: take 1 orally every 12 hours as needed for pain. Dispense twenty (20). No refills. Substitution is permissible. -- Callie Patel A.R.N.P.
== END 2016-10-13 22:06 | disposition home or self-care (01) ==
LOC: ED SRH 21:26
DX: K08.89 Other specified disorders of teeth and supporting structures (principal); F17.210 Nicotine dependence, cigarettes, uncomplicated; Z79.891 Long term (current) use of opiate analgesic; Z79.2 Long term (current) use of antibiotics; Z88.6 Allergy status to analgesic agent